=== PATIENT | female | born 1995 | race Two or more races ===

== ENCOUNTER 2017-05-20 03:35 | Inpatient (IN) | payer SELFPAY ==
[~2017-05-20] VITALS: Ht 157.5 cm; Wt 65.8 kg
[2017-05-20] VITALS (15 sets, daily range): BP systolic 92–119; BP diastolic 40–84
[2017-05-20 04:17] LABS: BASO # 0.1 x10^3/uL (0.0-0.2); BASO % 1 % (0-3); EOS % 0 % (0-3); HEMATOCRIT 52.2 % (36.0-47.0); HEMOGLOBIN 16.3 g/dL (12.0-15.5); LYMPH # 4.2 x10^3/uL (1.0-4.8); LYMPH % 30 % (24-48); MEAN CORPUSCULAR HEMOGLOBIN 28 pg (25-35); MEAN CORPUSCULAR HGB CONC 31 g/dL (31-37); MEAN CORPUSCULAR VOLUME 91 fL (79-100); MONO % 6 % (0-9); NEUT % 63 % (31-73); PLATELET COUNT 386 x10^3/uL (140-400); RED BLOOD COUNT 5.76 x10^6/uL (3.50-5.40); RED CELL DISTRIBUTION WIDTH 16.1 % (11.5-14.5)
[2017-05-20 04:30] LABS: BILIRUBIN,URINE NEGATIVE (NEG); GLUCOSE,URINE >=1000 mg/dL (NEG); NITRITE,URINE NEGATIVE (NEG); PH,URINE 5.5; PROTEIN,URINE 100 mg/dL (NEG-TRACE); UROBILINOGEN,URINE 0.2 mg/dL (0.2 mg/dL)
[2017-05-20] MEDS ORDERED: IV NORMAL SALINE 1000ML BAG 1,000 ML IV ONE ×3 (04:30→06:30)
[2017-05-20] MEDS ORDERED: HYDROmorphone 2 MG/ML VIAL IV ONE ×2 (04:30→05:15)
[2017-05-20] MEDS ORDERED: ONDANSETRON PF 4 MG/2 ML VIAL. IV ONE (04:30)
[2017-05-20] MEDS ORDERED: KETOROLAC 15 MG/ML VIAL. IV ONE (04:30)
[2017-05-20 04:32] LABS: ALBUMIN 4.5 g/dL (3.4-5.0); ALBUMIN/GLOBULIN RATIO 0.9 (1.0-1.7); CREATININE 1.3 mg/dL (0.6-1.0); GFR 52.2; POTASSIUM 4.6 mmol/L (3.5-5.1); TOTAL BILIRUBIN 0.4 mg/dL (0.2-1.0); TOTAL PROTEIN 9.7 g/dL (6.4-8.2)
--- NOTE | 2017-05-20 04:39 | RAD ---
Abdominal and Pelvis CT, Without Contrast: History: Left flank pain. Comparison: None. Procedure: Axial images are obtained of the abdomen and pelvis, without IV or oral contrast. CT Abdomen without Contrast: Findings: Evaluation of solid organs is limited without contrast. Evaluation of stomach and bowel is limited without oral contrast. Liver: Normal. Spleen: Normal. Pancreas: Normal. Adrenal Glands: Normal. Kidneys: Normal. There is no free air or free fluid. There is no lymphadenopathy. There is mild motion artifact. Impression: Please see CT Pelvis without Contrast. End Impression. CT Pelvis without Contrast: Findings: The urinary bladder appears normal. There is no free fluid. There is no lymphadenopathy. There is no pericolonic inflammation identified. The appendix is not well seen. Impression: No acute findings. End impression PQRS Compliance Statement: One or more of the following individualized dose reduction techniques were utilized for this examination: 1. Automated exposure control 2. Adjustment of the mA and/or kV according to patient size 3. Use of iterative reconstruction technique Electronically signed by: Ovi Fleming III, MD (05/20/2017 4:35 AM) [facility]
[2017-05-20] MEDS ORDERED: POTASSIUM CHLORIDE 10MEQ 100 ML IV PRN ×3 (04:45)
[2017-05-20] MEDS ORDERED: INSULIN REGULAR VIAL 150 UNIT in 0.9 % SODIUM CHLORIDE 150ML 150 ML IV PRN ×2 (04:45→04:51)
[2017-05-20 05:09] LABS: BACTERIA,URINE MODERATE /HPF (0-FEW); RBC,URINE OCC /HPF (0-2); SQUAMOUS EPITHELIAL CELL,UR MANY /LPF
--- NOTE | 2017-05-20 05:12 | PHYS DOC ---
Past Medical History Past Medical History: Diabetes-Type I Past Surgical History: No Surgical History Alcohol Use: None Drug Use: None Adult General Chief Complaint Chief Complaint: FLANK PAIN HPI HPI Patient is a 22 year old female with history significant for diabetes and DKA in the past as well as kidney infections presents here today complaining of left flank pain that was severe that started earlier this morning approximately 24 hours ago. Patient presents here today complaining of nausea vomiting, no diarrhea, no fevers shakes chills. Complaining of abdominal discomfort and cramping. Patient has any history of hypertension liver problems or other kidney problems. Patient does not smoke drink or do any drugs. Patient reports she is allergic to any medications. Patient has had no prior surgeries. Patient has any other symptomatology. Patient has any cough cold runny nose. Patient reports that she no longer has her doctor secondary to insurance reasons however she does go the clinic and she reports she has been compliant with all of her insulin except for her nighttime long-acting dose. Review of systems: Constitutional: Denies fever or chills Eyes: Denies change in visual acuity, redness, or eye pain HENT: Denies nasal congestion or sore throat All other systems were reviewed and found to be within normal limits, except as documented in this note. Physical exam Constitutional: Well developed, well nourished, significant discomfort, tachypneic and appears to be moderate respiratory discomfort. HENT: Normocephalic, atraumatic, bilateral external ears normal, oropharynx moist, no oral exudates, nose normal. Eyes: PERRLA, EOMI, conjunctiva normal, no discharge. Neck: Normal range of motion, no tenderness, supple, no stridor. Cardiovascular:Heart rate regular rhythm, tachycardic Lungs & Thorax: Bilateral breath sounds clear to auscultation Abdomen: Nondistended. Soft no rebound or guarding. Patient left tenderness palpation diffusely. Patient has tenderness to palpation to her left flank. Skin: Warm, dry, no erythema, no rash. Back: Significant tenderness to palpation to her left flank. Extremities: No tenderness, no cyanosis, no clubbing, ROM intact, no edema. Neurologic: Alert and oriented X 3, normal motor function, normal sensory function, no focal deficits noted. Psychologic: Affect normal, judgement normal, mood normal. CT scan of the abdomen pelvis: No acute pathology. EKG reveals sinus tachycardia at a heart rate of [address]-T wave abnormalities. No ischemia noted. Patient's labs were significant for severe diabetic ketoacidosis. Patient with a bicarbonate of 5 with a significant anion gap. Patient's blood sugars under 500. test negative. Assessment and plan: 1. 22-year-old female who presents here today with left flank pain and severe discomfort however she appears to be in severe diabetic ketoacidosis with a marked acidosis and anion gap. While the ER the patient was started on aggressive hydration and insulin supplementation. Patient will be admitted to the ICU for further management. Patient was volume resuscitated with 3 L of normal saline the ER. Patient was given 0.1 units per kilo per hour of insulin drip. Patient was given Dilaudid 1 mg IV as well as Toradol to assist with her pain initially as we initially thought this pain was secondary to renal colic. Patient feels much improved after pain medicines and IV fluids. Patient is currently significantly improved clinically and is stable for transfer up to the ICU at this time. Critical care time of 45 minutes were utilizing a treatment and management of this patient's severe acidosis and diabetic ketoacidosis. Patient was volume resuscitated with saline as well as IV insulin to correct her severe acidosis. Current Medications Current Medications Current Medications Medications (Trade) Dose Ordered Sig/Aaron Start Time Stop Time Status Last Admin Dose Admin Hydromorphone HCl (Dilaudid) 0.5 mg 1X ONCE 05/20/17 05:15 05/20/17 05:16 05/20/17 04:58 0.5 MG Insulin Human Regular 150 unit/ Sodium Chloride 151.5 ml @ 0 mls/hr CONT PRN PRN 05/20/17 04:51 Ketorolac Tromethamine (Toradol) 15 mg 1X ONCE 05/20/17 04:30 05/20/17 04:31 DC 05/20/17 04:12 15 MG Ondansetron HCl (Zofran) 4 mg 1X ONCE 05/20/17 04:30 05/20/17 04:31 DC 05/20/17 04:12 4 MG Potassium Chloride 100 ml @ 100 mls/hr PRN Q1HR PRN 05/20/17 04:45 Sodium Chloride 1,000 ml @ 1,000 mls/hr 1X ONCE 05/20/17 04:45 05/20/17 05:44 05/20/17 04:58 1,000 MLS/HR Allergies Allergies Allergies Coded Allergies Type Severity Reaction Last Updated Verified No Known Drug Allergies 06/19/13 No Current Patient Data Vital Signs Vital Signs Date Time Temp Pulse Resp B/P (MAP) Pulse Ox O2 Delivery O2 Flow Rate FiO2 05/20/17 03:45 97.8 106 30 151/91 (111) 98 Room Air 97.8 Lab Values Laboratory Tests Test 05/20/17 03:45 05/20/17 03:48 White Blood Count 14.0 x10^3/uL (4.0-11.0) H Red Blood Count 5.76 x10^6/uL (3.50-5.40) H Hemoglobin 16.3 g/dL (12.0-15.5) H Hematocrit 52.2 % (36.0-47.0) H Mean Corpuscular Volume 91 fL (79-100) Mean Corpuscular Hemoglobin 28 pg (25-35) Mean Corpuscular Hemoglobin Concent 31 g/dL (31-37) Red Cell Distribution Width 16.1 % (11.5-14.5) H Platelet Count 386 x10^3/uL (140-400) Neutrophils (%) (Auto) 63 % (31-73) Lymphocytes (%) (Auto) 30 % (24-48) Monocytes (%) (Auto) 6 % (0-9) Eosinophils (%) (Auto) 0 % (0-3) Basophils (%) (Auto) 1 % (0-3) Neutrophils # (Auto) 8.8 x10^3uL (1.8-7.7) H Lymphocytes # (Auto) 4.2 x10^3/uL (1.0-4.8) Monocytes # (Auto) 0.9 x10^3/uL (0.0-1.1) Eosinophils # (Auto) 0.0 x10^3/uL (0.0-0.7) Basophils # (Auto) 0.1 x10^3/uL (0.0-0.2) Sodium Level 139 mmol/L (136-145) Potassium Level 4.6 mmol/L (3.5-5.1) Chloride Level 98 mmol/L (98-107) Carbon Dioxide Level 7 mmol/L (21-32) *L Anion Gap 34 (6-14) H Blood Urea Nitrogen 15 mg/dL (7-20) Creatinine 1.3 mg/dL (0.6-1.0) H Estimated GFR (Cockcroft-Gault) 52.2 BUN/Creatinine Ratio 12 (6-20) Glucose Level 427 mg/dL (70-99) H Calcium Level 9.0 mg/dL (8.5-10.1) Total Bilirubin 0.4 mg/dL (0.2-1.0) Aspartate Amino Transferase (AST) 21 U/L (15-37) Alanine Aminotransferase (ALT) 37 U/L (14-59) Alkaline Phosphatase 155 U/L (46-116) H Total Protein 9.7 g/dL (6.4-8.2) H Albumin 4.5 g/dL (3.4-5.0) Albumin/Globulin Ratio 0.9 (1.0-1.7) L Lipase 110 U/L (73-393) POC Urine HCG, Qualitative Hcg negative (Negative) Laboratory Tests 05/20/17 03:45 Laboratory Tests 05/20/17 03:45 EKG EKG [] Radiology/Procedures Radiology/Procedures [] Course & Med Decision Making Course & Med Decision Making Pertinent Labs and Imaging studies reviewed. (See chart for details) [] Dragon Disclaimer Dragon Disclaimer This electronic medical record was generated, in whole or in part, using a voice recognition dictation system. Departure Departure Impression: Primary Impression: Diabetic ketoacidosis Disposition: HOME, SELF-CARE Admitting Physician: Alayna Nunez Condition: IMPROVED Referrals: NO PCP (PCP) GERALDO BEACH MD May 20, 2017 05:12
--- NOTE | 2017-05-20 05:20 | EKG ---
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
[2017-05-20] MEDS: IV DEXTROSE 5% - 0.9 % NACL 1,000 ML IV SCH ×3 (07:45→15:45)
[2017-05-20] MEDS: HYDROmorphone 2 MG/ML VIAL IV PRN ×4 (07:52→23:20)
[2017-05-20 08:40] LABS: CALCIUM 7.1 mg/dL (8.5-10.1); GFR 70.7; MAGNESIUM 1.4 mg/dL (1.8-2.4); POTASSIUM 4.6 mmol/L (3.5-5.1)
[2017-05-20] MEDS ORDERED: MAGNESIUM SULFATE 4GM 100 ML IV ONE (09:00)
--- NOTE | 2017-05-20 09:19 | PDOC1 ---
History and Physical Date of Admission Date of Admission DATE: 05/20/17 TIME: 09:09 Identification/Chief Complaint Chief Complaint flank pain Problems: Source Source: Chart review, Patient History of Present Illness History of Present Illness Ms. Qureshi, is a 22 year old female admit with gap acidosis, consistent with DKA. She went to the ER, complaining of acute flank pain, she has been getting IV pain meds in the ER and ICU, now lethargic Pain was described as abdominal discomfort and cramping. Patient does not smoke drink or do any drugs, denies ingesting anything unusual. Patient has any cough cold runny nose, has not gotten a flu shot Past Medical History Cardiovascular: No pertinent hx Pulmonary: No pertinent hx Renal/: No pertinent hx Endocrine: No pertinent hx Dermatology: No pertinent hx Family History Family History: Family History Unknown Social History Smoke: No ALCOHOL: none Current Problem List Problem List Problems Medical Problems: (1) Diabetic ketoacidosis Status: Acute Problems: Current Medications Current Medications Current Medications Ondansetron HCl (Zofran) 4 mg 1X ONCE IV Last administered on 05/20/17 04:12 ; Start 05/20/17 at 04:30; Stop 05/20/17 at 04:31; Status DC Hydromorphone HCl (Dilaudid) 1 mg 1X ONCE IV Last administered on 05/20/17 04:12; Start 05/20/17 at 04:30; Stop 05/20/17 at 04:31; Status DC Ketorolac Tromethamine (Toradol) 15 mg 1X ONCE IV Last administered on 04:12; Start 05/20/17 at 04:30; Stop 05/20/17 at 04:31; Status DC Sodium Chloride 1,000 ml @ 1,000 mls/hr 1X ONCE IV Last administered on 05/20 04:13; Start 05/20/17 at 04:30; Stop 05/20/17 at 05:29; Status DC Sodium Chloride 1,000 ml @ 1,000 mls/hr 1X ONCE IV Last administered on 05/20 04:58; Start 05/20/17 at 04:45; Stop 05/20/17 at 05:44; Status DC Insulin Human Regular 150 unit/ Sodium Chloride 151.5 ml @ 0 mls/hr CONT PRN PRN IV PER PROTOCOL; Start 05/20/17 at 04:45; Stop 05/20/17 at 04:51; Status DC Potassium Chloride 100 ml @ 100 mls/hr PRN Q1HR PRN IV SEE COMMENTS; Start at 04:45 Potassium Chloride 100 ml @ 100 mls/hr PRN Q1HR PRN IV SEE COMMENTS; Start at 04:45 Potassium Chloride 100 ml @ 100 mls/hr PRN Q1HR PRN IV SEE COMMENTS; Start at 04:45 Insulin Human Regular 150 unit/ Sodium Chloride 151.5 ml @ 0 mls/hr CONT PRN PRN IV PER PROTOCOL Last administered on 05/20/17 05:09; Start 05/20/17 at 04 :51 Hydromorphone HCl (Dilaudid) 0.5 mg 1X ONCE IV Last administered on 04:58; Start 05/20/17 at 05:15; Stop 05/20/17 at 05:16; Status DC Hydromorphone HCl (Dilaudid) 0.5 mg PRN Q2HR PRN IV SEVERE PAIN Last administered on 05/20/17 07:52; Start 05/20/17 at 05:45 Sodium Chloride 1,000 ml @ 1,000 mls/hr 1X ONCE IV Last administered on 05/20 06:18; Start 05/20/17 at 06:30; Stop 05/20/17 at 07:29; Status DC Dextrose/Sodium Chloride 1,000 ml @ 250 mls/hr Q4H IV Last administered on 07:45; Start 05/20/17 at 07:45 Magnesium Sulfate/ Dextrose 100 ml @ 25 mls/hr 1X ONCE IV ; Start 05/20/17 at 09:00; Stop 05/20/17 at 12:59 Active Scripts Active Allergies Allergies: Coded Allergies: No Known Drug Allergies (Unverified , 06/19/13) ROS General: No: Chills, Night Sweats, Fatigue, Malaise, Appetite, Other PSYCHOLOGICAL ROS: No: Anxiety, Behavioral Disorder, Concentration difficultie , Decreased libido, Depression, Disorientation, Hallucinations, Hostility, Irritablity, Memory difficulties, Mood Swings, Obsessive thoughts, Physical abuse, Sexual abuse, Sleep disturbances, Suicidal ideation, Other Eyes: No Blurry vision, No Decreased vision, No Double vision, No Dry eyes, No Excessive tearing, No Eye Pain, No Itchy Eyes, No Loss of vision, No Photophobia , No Scotomata, No Uses contacts, No Uses glasses, No Other HEENT: YES: Heacaches, No: Visual Changes, Hearing change, Nasal congestion, Nasal discharge, Oral lesions, Sinus pain, Sore Throat, Epistaxis, Sneezing, Snoring, Tinnitus, Vertigo, Vocal changes, Other Respiratory: No: Cough, Hemoptysis, Orthopnea, Pleuritic Pain, Shortness of breath, SOB with excertion, Sputum Changes, Stridor, Tachypnea, Wheezing, Other Cardiovascular: No Chest Pain, No Palpitations, No Orthopnea, No Paroxysmal Noc. Dyspnea, No Edema, No Lt Headedness, No Other Gastrointestinal: No Nausea, No Vomiting, No Abdominal Pain, No Diarrhea, No Constipation, No Melena, No Hematochezia, No Other Genitourinary: No Dysuria, No Frequency, No Incontinence, No Hematuria, No Retention, No Discharge, No Urgency, No Pain, No Flank Pain, No Other, No , No , No , No , No , No , No Musculoskeletal: No Gait Disturbance, No Joint Pain, No Joint Stiffness, No Joint Swelling, No Muscle Pain, No Muscular Weakness, No Pain In:, No Swelling In:, No Other Neurological: No Behavorial Changes, No Bowel/Bladder ControlChng, No Confusion , No Dizziness, No Gait Disturbance, No Headaches, No Impaired Coord/balance, No Memory Loss, No Numbness/Tingling, No Seizures, No Speech Problems, No Tremors, No Visual Changes, No Weakness, No Other Skin: Yes Dry Skin, No Eczema, No Hair Changes, No Lumps, No Mole Changes, No Mottling, No Nail Changes, No Pruritus, No Rash, No Skin Lesion Changes, No Other, No Acne Physical Exam General: Alert, Oriented X3, Cooperative, No acute distress HEENT: Atraumatic, PERRLA Lungs: Clear to auscultation Heart: S1S2 Abdomen: Normal bowel sounds, Soft Extremities: No clubbing, No cyanosis, No edema, Normal pulses Skin: No breakdown, No significant lesion Neuro: Normal speech, Normal tone, Cranial nerves 3-12 NL Psych/Mental Status: Other (lethargy) Vitals Vitals Vital Signs Date Time Temp Pulse Resp B/P (MAP) Pulse Ox O2 Delivery O2 Flow Rate FiO2 05/20/17 07:52 11 100 05/20/17 06:30 132 119/65 (83) Room Air 05/20/17 06:00 98.3 98.3 Labs Labs Laboratory Tests Test 05/20/17 03:45 05/20/17 03:48 05/20/17 06:12 05/20/17 07:24 White Blood Count 14.0 x10^3/uL (4.0-11.0) Red Blood Count 5.76 x10^6/uL (3.50-5.40) Hemoglobin 16.3 g/dL (12.0-15.5) Hematocrit 52.2 % (36.0-47.0) Mean Corpuscular Volume 91 fL (79-100) Mean Corpuscular Hemoglobin 28 pg (25-35) Mean Corpuscular Hemoglobin Concent 31 g/dL (31-37) Red Cell Distribution Width 16.1 % (11.5-14.5) Platelet Count 386 x10^3/uL (140-400) Neutrophils (%) (Auto) 63 % (31-73) Lymphocytes (%) (Auto) 30 % (24-48) Monocytes (%) (Auto) 6 % (0-9) Eosinophils (%) (Auto) 0 % (0-3) Basophils (%) (Auto) 1 % (0-3) Neutrophils # (Auto) 8.8 x10^3uL (1.8-7.7) Lymphocytes # (Auto) 4.2 x10^3/uL (1.0-4.8) Monocytes # (Auto) 0.9 x10^3/uL (0.0-1.1) Eosinophils # (Auto) 0.0 x10^3/uL (0.0-0.7) Basophils # (Auto) 0.1 x10^3/uL (0.0-0.2) Urine Collection Type Unknown Urine Color Yellow Urine Clarity Clear Urine pH 5.5 Urine Specific [place] >=1.030 Urine Protein 100 mg/dL (NEG-TRACE) Urine Glucose (UA) >=1000 mg/dL (NEG) Urine Ketones (Stick) >=80 mg/dL (NEG) Urine Blood Small (NEG) Urine Nitrite Negative (NEG) Urine Bilirubin Negative (NEG) Urine Urobilinogen Dipstick 0.2 mg/dL (0.2 mg/dL) Urine Leukocyte Esterase Negative (NEG) Urine RBC Occ /HPF (0-2) Urine WBC 1-4 /HPF (0-4) Urine Squamous Epithelial Cells Many /LPF Urine Bacteria Moderate /HPF (0-FEW) Sodium Level 139 mmol/L (136-145) Potassium Level 4.6 mmol/L (3.5-5.1) Chloride Level 98 mmol/L (98-107) Carbon Dioxide Level 7 mmol/L (21-32) Anion Gap 34 (6-14) Blood Urea Nitrogen 15 mg/dL (7-20) Creatinine 1.3 mg/dL (0.6-1.0) Estimated GFR (Cockcroft-Gault) 52.2 BUN/Creatinine Ratio 12 (6-20) Glucose Level 427 mg/dL (70-99) Calcium Level 9.0 mg/dL (8.5-10.1) Phosphorus Level 4.3 mg/dL (2.6-4.7) Magnesium Level 1.7 mg/dL (1.8-2.4) Total Bilirubin 0.4 mg/dL (0.2-1.0) Aspartate Amino Transf (AST/SGOT) 21 U/L (15-37) Alanine Aminotransferase (ALT/SGPT) 37 U/L (14-59) Alkaline Phosphatase 155 U/L (46-116) Total Protein 9.7 g/dL (6.4-8.2) Albumin 4.5 g/dL (3.4-5.0) Albumin/Globulin Ratio 0.9 (1.0-1.7) Lipase 110 U/L (73-393) Bedside Urine HCG, Qualitative Hcg negative (Negative) Glucose (Fingerstick) 323 mg/dL (70-99) 211 mg/dL (70-99) Test 05/20/17 08:05 05/20/17 08:36 Sodium Level 139 mmol/L (136-145) Potassium Level 4.6 mmol/L (3.5-5.1) Chloride Level 108 mmol/L (98-107) Carbon Dioxide Level 5 mmol/L (21-32) Anion Gap 26 (6-14) Blood Urea Nitrogen 12 mg/dL (7-20) Creatinine 1.0 mg/dL (0.6-1.0) Estimated GFR (Cockcroft-Gault) 70.7 Glucose Level 236 mg/dL (70-99) Calcium Level 7.1 mg/dL (8.5-10.1) Phosphorus Level 2.8 mg/dL (2.6-4.7) Magnesium Level 1.4 mg/dL (1.8-2.4) Glucose (Fingerstick) 205 mg/dL (70-99) Laboratory Tests Test 05/20/17 03:45 05/20/17 03:48 05/20/17 06:12 05/20/17 07:24 White Blood Count 14.0 x10^3/uL (4.0-11.0) Red Blood Count 5.76 x10^6/uL (3.50-5.40) Hemoglobin 16.3 g/dL (12.0-15.5) Hematocrit 52.2 % (36.0-47.0) Mean Corpuscular Volume 91 fL (79-100) Mean Corpuscular Hemoglobin 28 pg (25-35) Mean Corpuscular Hemoglobin Concent 31 g/dL (31-37) Red Cell Distribution Width 16.1 % (11.5-14.5) Platelet Count 386 x10^3/uL (140-400) Neutrophils (%) (Auto) 63 % (31-73) Lymphocytes (%) (Auto) 30 % (24-48) Monocytes (%) (Auto) 6 % (0-9) Eosinophils (%) (Auto) 0 % (0-3) Basophils (%) (Auto) 1 % (0-3) Neutrophils # (Auto) 8.8 x10^3uL (1.8-7.7) Lymphocytes # (Auto) 4.2 x10^3/uL (1.0-4.8) Monocytes # (Auto) 0.9 x10^3/uL (0.0-1.1) Eosinophils # (Auto) 0.0 x10^3/uL (0.0-0.7) Basophils # (Auto) 0.1 x10^3/uL (0.0-0.2) Urine Collection Type Unknown Urine Color Yellow Urine Clarity Clear Urine pH 5.5 Urine Specific [place] >=1.030 Urine Protein 100 mg/dL (NEG-TRACE) Urine Glucose (UA) >=1000 mg/dL (NEG) Urine Ketones (Stick) >=80 mg/dL (NEG) Urine Blood Small (NEG) Urine Nitrite Negative (NEG) Urine Bilirubin Negative (NEG) Urine Urobilinogen Dipstick 0.2 mg/dL (0.2 mg/dL) Urine Leukocyte Esterase Negative (NEG) Urine RBC Occ /HPF (0-2) Urine WBC 1-4 /HPF (0-4) Urine Squamous Epithelial Cells Many /LPF Urine Bacteria Moderate /HPF (0-FEW) Sodium Level 139 mmol/L (136-145) Potassium Level 4.6 mmol/L (3.5-5.1) Chloride Level 98 mmol/L (98-107) Carbon Dioxide Level 7 mmol/L (21-32) Anion Gap 34 (6-14) Blood Urea Nitrogen 15 mg/dL (7-20) Creatinine 1.3 mg/dL (0.6-1.0) Estimated GFR (Cockcroft-Gault) 52.2 BUN/Creatinine Ratio 12 (6-20) Glucose Level 427 mg/dL (70-99) Calcium Level 9.0 mg/dL (8.5-10.1) Phosphorus Level 4.3 mg/dL (2.6-4.7) Magnesium Level 1.7 mg/dL (1.8-2.4) Total Bilirubin 0.4 mg/dL (0.2-1.0) Aspartate Amino Transf (AST/SGOT) 21 U/L (15-37) Alanine Aminotransferase (ALT/SGPT) 37 U/L (14-59) Alkaline Phosphatase 155 U/L (46-116) Total Protein 9.7 g/dL (6.4-8.2) Albumin 4.5 g/dL (3.4-5.0) Albumin/Globulin Ratio 0.9 (1.0-1.7) Lipase 110 U/L (73-393) Bedside Urine HCG, Qualitative Hcg negative (Negative) Glucose (Fingerstick) 323 mg/dL (70-99) 211 mg/dL (70-99) Test 05/20/17 08:05 05/20/17 08:36 Sodium Level 139 mmol/L (136-145) Potassium Level 4.6 mmol/L (3.5-5.1) Chloride Level 108 mmol/L (98-107) Carbon Dioxide Level 5 mmol/L (21-32) Anion Gap 26 (6-14) Blood Urea Nitrogen 12 mg/dL (7-20) Creatinine 1.0 mg/dL (0.6-1.0) Estimated GFR (Cockcroft-Gault) 70.7 Glucose Level 236 mg/dL (70-99) Calcium Level 7.1 mg/dL (8.5-10.1) Phosphorus Level 2.8 mg/dL (2.6-4.7) Magnesium Level 1.4 mg/dL (1.8-2.4) Glucose (Fingerstick) 205 mg/dL (70-99) VTE Prophylaxis Ordered VTE Prophylaxis Devices: No VTE Pharmacological Prophylaxi: Yes Assessment/Plan Assessment/Plan sepsis, unk source, check flu swab, CXR, ID consult acute metabolic encephalopathy gap metabolic acidosis, check lactic, asa, EtOH, she denies any ingestion respiratory acidosis, lethargy, weakness SIMONA CAMPA MD May 20, 2017 09:19
[2017-05-20] MEDS ORDERED: SODIUM BICARB ADULT 8.4% 50 MEQ/50 ML DISP.SYRIN. IV ONE (09:45)
--- NOTE | 2017-05-20 09:55 | RAD ---
AP PORTABLE CHEST Clinical Indication: sepsis. Comparison: AP chest, 12/24/2012. Findings: The cardiomediastinal silhouette is normal. Lungs are clear. There is no pneumothorax. No pleural effusion is appreciated. There is no acute bone abnormality. IMPRESSION: No acute cardiopulmonary process.
[2017-05-20 09:57] LABS: BARBITURATES NEG (NEG); BENZODIAZEPINES NEG (NEG); CANNABINOIDS NEG (NEG); COCAINE NEG (NEG); METHADONE NEG (NEG); OPIATES NEG (NEG); PHENCYCLIDINE NEG (NEG)
[2017-05-20 10:15] LABS: HCO3 ABG 4 mmol/L (21-28); PO2 ABG 125 mmHg (85-108); SAT O2 ABG 98 % (92-99)
[2017-05-20 10:16] LABS: FIO2 ABG 21; PCO2 ABG < 15 mmHg (35-46); PH ABG 7.05 (7.35-7.45)
[2017-05-20] MEDS: ENOXAPARIN 40 MG/0.4 ML SYRINGE. SQ SCH (10:34)
--- NOTE | 2017-05-20 10:45 | PDOC ---
PROGRESS NOTES Subjective Subjective consulted for Met ACidosis: Lactic pending, SUspect due to DKA AB.045/ 13.6/ 125/ 3.6 IV Bcarb as ordered by Dr Mason and Dr Nunez Gap is closing with correction of DKA. Pl call prn Objective Objective Vital Signs Date Time Temp Pulse Resp B/P (MAP) Pulse Ox O2 Delivery O2 Flow Rate FiO2 05/20/17 10:07 99 BiPAP/CPAP 05/20/17 08:25 10 05/20/17 06:30 132 119/65 (83) 05/20/17 06:00 98.3 98.3 Assessment Assessment Problems Medical Problems: (1) Diabetic ketoacidosis Status: Acute Comment Review of Relevant I have reviewed the following items tyra (where applicable) has been applied. Labs Laboratory Tests Test 05/20/17 03:45 05/20/17 03:48 05/20/17 06:12 05/20/17 06:46 White Blood Count 14.0 x10^3/uL (4.0-11.0) Red Blood Count 5.76 x10^6/uL (3.50-5.40) Hemoglobin 16.3 g/dL (12.0-15.5) Hematocrit 52.2 % (36.0-47.0) Mean Corpuscular Volume 91 fL (79-100) Mean Corpuscular Hemoglobin 28 pg (25-35) Mean Corpuscular Hemoglobin Concent 31 g/dL (31-37) Red Cell Distribution Width 16.1 % (11.5-14.5) Platelet Count 386 x10^3/uL (140-400) Neutrophils (%) (Auto) 63 % (31-73) Lymphocytes (%) (Auto) 30 % (24-48) Monocytes (%) (Auto) 6 % (0-9) Eosinophils (%) (Auto) 0 % (0-3) Basophils (%) (Auto) 1 % (0-3) Neutrophils # (Auto) 8.8 x10^3uL (1.8-7.7) Lymphocytes # (Auto) 4.2 x10^3/uL (1.0-4.8) Monocytes # (Auto) 0.9 x10^3/uL (0.0-1.1) Eosinophils # (Auto) 0.0 x10^3/uL (0.0-0.7) Basophils # (Auto) 0.1 x10^3/uL (0.0-0.2) Urine Collection Type Unknown Urine Color Yellow Urine Clarity Clear Urine pH 5.5 Urine Specific [place] >=1.030 Urine Protein 100 mg/dL (NEG-TRACE) Urine Glucose (UA) >=1000 mg/dL (NEG) Urine Ketones (Stick) >=80 mg/dL (NEG) Urine Blood Small (NEG) Urine Nitrite Negative (NEG) Urine Bilirubin Negative (NEG) Urine Urobilinogen Dipstick 0.2 mg/dL (0.2 mg/dL) Urine Leukocyte Esterase Negative (NEG) Urine RBC Occ /HPF (0-2) Urine WBC 1-4 /HPF (0-4) Urine Squamous Epithelial Cells Many /LPF Urine Bacteria Moderate /HPF (0-FEW) Sodium Level 139 mmol/L (136-145) Potassium Level 4.6 mmol/L (3.5-5.1) Chloride Level 98 mmol/L (98-107) Carbon Dioxide Level 7 mmol/L (21-32) Anion Gap 34 (6-14) Blood Urea Nitrogen 15 mg/dL (7-20) Creatinine 1.3 mg/dL (0.6-1.0) Estimated GFR (Cockcroft-Gault) 52.2 BUN/Creatinine Ratio 12 (6-20) Glucose Level 427 mg/dL (70-99) Calcium Level 9.0 mg/dL (8.5-10.1) Phosphorus Level 4.3 mg/dL (2.6-4.7) Magnesium Level 1.7 mg/dL (1.8-2.4) Total Bilirubin 0.4 mg/dL (0.2-1.0) Aspartate Amino Transf (AST/SGOT) 21 U/L (15-37) Alanine Aminotransferase (ALT/SGPT) 37 U/L (14-59) Alkaline Phosphatase 155 U/L (46-116) Total Protein 9.7 g/dL (6.4-8.2) Albumin 4.5 g/dL (3.4-5.0) Albumin/Globulin Ratio 0.9 (1.0-1.7) Lipase 110 U/L (73-393) Urine Opiates Screen Neg (NEG) Urine Methadone Screen Neg (NEG) Urine Barbiturates Neg (NEG) Urine Phencyclidine Screen Neg (NEG) Urine Amphetamine/Methamphetamine Neg (NEG) Urine Benzodiazepines Screen Neg (NEG) Urine Cocaine Screen Neg (NEG) Urine Cannabinoids Screen Neg (NEG) Urine Ethyl Alcohol Neg (NEG) Bedside Urine HCG, Qualitative Hcg negative (Negative) Glucose (Fingerstick) 323 mg/dL (70-99) O2 Saturation 98 % (92-99) Arterial Blood pH 7.05 (7.35-7.45) Arterial Blood pCO2 at Patient Temp < 15 mmHg (35-46) Arterial Blood pO2 at Patient Temp 125 mmHg (85-108) Arterial Blood HCO3 4 mmol/L (21-28) Arterial Blood Base Excess -25 mmol/L (-3-3) FiO2 21 Test 05/20/17 07:24 05/20/17 08:05 05/20/17 08:36 05/20/17 09:30 Glucose (Fingerstick) 211 mg/dL (70-99) 205 mg/dL (70-99) Sodium Level 139 mmol/L (136-145) Potassium Level 4.6 mmol/L (3.5-5.1) Chloride Level 108 mmol/L (98-107) Carbon Dioxide Level 5 mmol/L (21-32) Anion Gap 26 (6-14) Blood Urea Nitrogen 12 mg/dL (7-20) Creatinine 1.0 mg/dL (0.6-1.0) Estimated GFR (Cockcroft-Gault) 70.7 Glucose Level 236 mg/dL (70-99) Calcium Level 7.1 mg/dL (8.5-10.1) Phosphorus Level 2.8 mg/dL (2.6-4.7) Magnesium Level 1.4 mg/dL (1.8-2.4) Salicylates Level 7.1 mg/dL (2.8-20.0) Salicylate Last Dose Date 05/19/17 Salicylate Last Dose Time 1900 Ethyl Alcohol Level < 10 mg/dL (0-10) Lactic Acid Level 0.7 mmol/L (0.4-2.0) Test 05/20/17 09:51 Glucose (Fingerstick) 207 mg/dL (70-99) Laboratory Tests Test 05/20/17 03:45 05/20/17 03:48 05/20/17 06:12 05/20/17 06:46 White Blood Count 14.0 x10^3/uL (4.0-11.0) Red Blood Count 5.76 x10^6/uL (3.50-5.40) Hemoglobin 16.3 g/dL (12.0-15.5) Hematocrit 52.2 % (36.0-47.0) Mean Corpuscular Volume 91 fL (79-100) Mean Corpuscular Hemoglobin 28 pg (25-35) Mean Corpuscular Hemoglobin Concent 31 g/dL (31-37) Red Cell Distribution Width 16.1 % (11.5-14.5) Platelet Count 386 x10^3/uL (140-400) Neutrophils (%) (Auto) 63 % (31-73) Lymphocytes (%) (Auto) 30 % (24-48) Monocytes (%) (Auto) 6 % (0-9) Eosinophils (%) (Auto) 0 % (0-3) Basophils (%) (Auto) 1 % (0-3) Neutrophils # (Auto) 8.8 x10^3uL (1.8-7.7) Lymphocytes # (Auto) 4.2 x10^3/uL (1.0-4.8) Monocytes # (Auto) 0.9 x10^3/uL (0.0-1.1) Eosinophils # (Auto) 0.0 x10^3/uL (0.0-0.7) Basophils # (Auto) 0.1 x10^3/uL (0.0-0.2) Urine Collection Type Unknown Urine Color Yellow Urine Clarity Clear Urine pH 5.5 Urine Specific [place] >=1.030 Urine Protein 100 mg/dL (NEG-TRACE) Urine Glucose (UA) >=1000 mg/dL (NEG) Urine Ketones (Stick) >=80 mg/dL (NEG) Urine Blood Small (NEG) Urine Nitrite Negative (NEG) Urine Bilirubin Negative (NEG) Urine Urobilinogen Dipstick 0.2 mg/dL (0.2 mg/dL) Urine Leukocyte Esterase Negative (NEG) Urine RBC Occ /HPF (0-2) Urine WBC 1-4 /HPF (0-4) Urine Squamous Epithelial Cells Many /LPF Urine Bacteria Moderate /HPF (0-FEW) Sodium Level 139 mmol/L (136-145) Potassium Level 4.6 mmol/L (3.5-5.1) Chloride Level 98 mmol/L (98-107) Carbon Dioxide Level 7 mmol/L (21-32) Anion Gap 34 (6-14) Blood Urea Nitrogen 15 mg/dL (7-20) Creatinine 1.3 mg/dL (0.6-1.0) Estimated GFR (Cockcroft-Gault) 52.2 BUN/Creatinine Ratio 12 (6-20) Glucose Level 427 mg/dL (70-99) Calcium Level 9.0 mg/dL (8.5-10.1) Phosphorus Level 4.3 mg/dL (2.6-4.7) Magnesium Level 1.7 mg/dL (1.8-2.4) Total Bilirubin 0.4 mg/dL (0.2-1.0) Aspartate Amino Transf (AST/SGOT) 21 U/L (15-37) Alanine Aminotransferase (ALT/SGPT) 37 U/L (14-59) Alkaline Phosphatase 155 U/L (46-116) Total Protein 9.7 g/dL (6.4-8.2) Albumin 4.5 g/dL (3.4-5.0) Albumin/Globulin Ratio 0.9 (1.0-1.7) Lipase 110 U/L (73-393) Urine Opiates Screen Neg (NEG) Urine Methadone Screen Neg (NEG) Urine Barbiturates Neg (NEG) Urine Phencyclidine Screen Neg (NEG) Urine Amphetamine/Methamphetamine Neg (NEG) Urine Benzodiazepines Screen Neg (NEG) Urine Cocaine Screen Neg (NEG) Urine Cannabinoids Screen Neg (NEG) Urine Ethyl Alcohol Neg (NEG) Bedside Urine HCG, Qualitative Hcg negative (Negative) Glucose (Fingerstick) 323 mg/dL (70-99) O2 Saturation 98 % (92-99) Arterial Blood pH 7.05 (7.35-7.45) Arterial Blood pCO2 at Patient Temp < 15 mmHg (35-46) Arterial Blood pO2 at Patient Temp 125 mmHg (85-108) Arterial Blood HCO3 4 mmol/L (21-28) Arterial Blood Base Excess -25 mmol/L (-3-3) FiO2 21 Test 05/20/17 07:24 05/20/17 08:05 05/20/17 08:36 05/20/17 09:30 Glucose (Fingerstick) 211 mg/dL (70-99) 205 mg/dL (70-99) Sodium Level 139 mmol/L (136-145) Potassium Level 4.6 mmol/L (3.5-5.1) Chloride Level 108 mmol/L (98-107) Carbon Dioxide Level 5 mmol/L (21-32) Anion Gap 26 (6-14) Blood Urea Nitrogen 12 mg/dL (7-20) Creatinine 1.0 mg/dL (0.6-1.0) Estimated GFR (Cockcroft-Gault) 70.7 Glucose Level 236 mg/dL (70-99) Calcium Level 7.1 mg/dL (8.5-10.1) Phosphorus Level 2.8 mg/dL (2.6-4.7) Magnesium Level 1.4 mg/dL (1.8-2.4) Salicylates Level 7.1 mg/dL (2.8-20.0) Salicylate Last Dose Date 05/19/17 Salicylate Last Dose Time 1900 Ethyl Alcohol Level < 10 mg/dL (0-10) Lactic Acid Level 0.7 mmol/L (0.4-2.0) Test 05/20/17 09:51 Glucose (Fingerstick) 207 mg/dL (70-99) Medications Current Medications Ondansetron HCl (Zofran) 4 mg 1X ONCE IV Last administered on 05/20/17 04:12 ; Start 05/20/17 at 04:30; Stop 05/20/17 at 04:31; Status DC Hydromorphone HCl (Dilaudid) 1 mg 1X ONCE IV Last administered on 05/20/17 04:12; Start 05/20/17 at 04:30; Stop 05/20/17 at 04:31; Status DC Ketorolac Tromethamine (Toradol) 15 mg 1X ONCE IV Last administered on 04:12; Start 05/20/17 at 04:30; Stop 05/20/17 at 04:31; Status DC Sodium Chloride 1,000 ml @ 1,000 mls/hr 1X ONCE IV Last administered on 05/20 04:13; Start 05/20/17 at 04:30; Stop 05/20/17 at 05:29; Status DC Sodium Chloride 1,000 ml @ 1,000 mls/hr 1X ONCE IV Last administered on 05/20 04:58; Start 05/20/17 at 04:45; Stop 05/20/17 at 05:44; Status DC Insulin Human Regular 150 unit/ Sodium Chloride 151.5 ml @ 0 mls/hr CONT PRN PRN IV PER PROTOCOL; Start 05/20/17 at 04:45; Stop 05/20/17 at 04:51; Status DC Potassium Chloride 100 ml @ 100 mls/hr PRN Q1HR PRN IV SEE COMMENTS; Start at 04:45 Potassium Chloride 100 ml @ 100 mls/hr PRN Q1HR PRN IV SEE COMMENTS; Start at 04:45 Potassium Chloride 100 ml @ 100 mls/hr PRN Q1HR PRN IV SEE COMMENTS; Start at 04:45 Insulin Human Regular 150 unit/ Sodium Chloride 151.5 ml @ 0 mls/hr CONT PRN PRN IV PER PROTOCOL Last administered on 05/20/17 05:09; Start 05/20/17 at 04 :51 Hydromorphone HCl (Dilaudid) 0.5 mg 1X ONCE IV Last administered on 04:58; Start 05/20/17 at 05:15; Stop 05/20/17 at 05:16; Status DC Hydromorphone HCl (Dilaudid) 0.5 mg PRN Q2HR PRN IV SEVERE PAIN Last administered on 05/20/17 07:52; Start 05/20/17 at 05:45 Sodium Chloride 1,000 ml @ 1,000 mls/hr 1X ONCE IV Last administered on 05/20 06:18; Start 05/20/17 at 06:30; Stop 05/20/17 at 07:29; Status DC Dextrose/Sodium Chloride 1,000 ml @ 250 mls/hr Q4H IV Last administered on 07:45; Start 05/20/17 at 07:45 Magnesium Sulfate/ Dextrose 100 ml @ 25 mls/hr 1X ONCE IV Last administered on 05/20/17 09:52; Start 05/20/17 at 09:00; Stop 05/20/17 at 12:59 Enoxaparin Sodium (Lovenox Per Pharmacy Prophylaxis Dosing) 1 each PRN DAILY PRN MC SEE COMMENTS; Start 12/24/17 at 09:15 Albuterol/ Ipratropium (Duoneb) 3 ml RTQID NEB ; Start 05/20/17 at 12:00 Enoxaparin Sodium (Lovenox 40mg Syringe) 40 mg Q24H SQ Last administered on 10:34; Start 05/20/17 at 10:00 Sodium Bicarbonate 100 meq 1X ONCE IV Last administered on 05/20/17 10:25; Start 05/20/17 at 09:45; Stop 05/20/17 at 09:46; Status DC Active Scripts Active Vitals/I & O Vital Sign - Last 24 Hours 05/20/17 05/20/17 05/20/17 05/20/17 03:45 04:35 05:06 06:00 Temp 97.8 98.3 97.8 98.3 Pulse 106 128 130 134 Resp 30 28 22 15 B/P (MAP) 151/91 (111) 119/66 (83) 119/62 (81) 112/67 (82) Pulse Ox 98 96 96 100 O2 Delivery Room Air Room Air Room Air Room Air 05/20/17 05/20/17 05/20/17 05/20/17 06:15 06:30 07:52 08:25 Pulse 134 132 Resp 15 13 11 10 B/P (MAP) 119/75 (90) 119/65 (83) Pulse Ox 100 100 100 100 O2 Delivery Room Air Room Air Room Air 05/20/17 10:07 Pulse Ox 99 O2 Delivery BiPAP/CPAP CANDY SEPULVEDA MD May 20, 2017 10:45
--- NOTE | 2017-05-20 11:45 | CONS ---
DATE OF CONSULTATION: 05/20/2017 ATTENDING PHYSICIAN: Dr. Alayna Nunez. REASON FOR CONSULTATION: Acidosis, diabetic ketoacidosis. HISTORY OF PRESENT ILLNESS: The patient is a 22-year-old female who has diabetes, insulin requiring. She came into the hospital with flank pain. The patient was also somewhat lethargic. In the Emergency Room, she was evaluated and a chest x-ray did not reveal any definite infiltrates. Her chemistries showed a blood sugar of 427 with a bicarbonate of only 7 and anion gap metabolic acidosis. Her BUN and creatinine was abnormal as well. The patient was admitted with diabetic ketoacidosis and protocol was followed. ABGs were with a pH of 7.05, pCO2 of less than 15, pO2 of 125 and a bicarbonate of 4 on 21% FiO2. At the time, I was called and with these abnormal ABGs I did place the patient on BiPAP as she was not compensating from a pulmonary standpoint. I gave 2 amps of bicarbonate. She appears to be very comfortable on the current BiPAP settings. Her lactic acid was normal. I have been asked to see her for further evaluation. PAST MEDICAL HISTORY: History of diabetes. PAST SURGICAL HISTORY: None. FAMILY HISTORY: Noncontributory to lungs. ALLERGIES: None. REVIEW OF SYSTEMS: As discussed in my history of present illness. MEDICATIONS: All reviewed as listed in the MRAD. PHYSICAL EXAMINATION: GENERAL: She is awake, following commands, on BiPAP. VITAL SIGNS: Blood pressure is stable, afebrile. HEENT: Sclerae nonicteric. NECK: Supple. LUNGS: Clear. CARDIOVASCULAR: Regular rate and rhythm. ABDOMEN: Soft. EXTREMITIES: With no pitting edema. LABORATORY DATA: Reviewed. Bicarbonate is 5. Increased anion gap. BUN and creatinine is now normal. IMPRESSION: 1. Diabetic ketoacidosis. 2. Severe metabolic acidosis secondary to diabetic ketoacidosis with somewhat inappropriate respiratory response. Currently on BiPAP. 3. No definite pneumonia seen on the chest x-ray. 4. Anion gap metabolic acidosis with normal lactic acidosis. RECOMMENDATIONS: 1. Continue present BiPAP. 2. Follow ABGs after 2 amps of bicarbonate. 3. Continue insulin protocol and follow the anion gap. 4. Management of diabetic ketoacidosis per primary care physician. 5. Renal function is improving with IV hydration. 6. Discussed with the patient's daughter and will follow along with you. d/w RN/ cct 37 min FREYA OCAMPO MD DR: VERONICA/qiana JOB#: [id number] / [id number] JON
[2017-05-20 11:47] LABS: HCO3 ABG 11 mmol/L (21-28); PCO2 ABG 24 mmHg (35-46); PH ABG 7.29 (7.35-7.45); PO2 ABG 102 mmHg (85-108); SAT O2 ABG 98 % (92-99)
[2017-05-20 12:32] LABS: CALCIUM 7.2 mg/dL (8.5-10.1); GFR 70.7; PHOSPHORUS 1.6 mg/dL (2.6-4.7); POTASSIUM 3.4 mmol/L (3.5-5.1)
[2017-05-20] MEDS: IPRATRPIUM/ALBUTEROL 0.5/2.5MG 3 ML NEBU. NEB SCH ×3 (12:32→19:22)
[2017-05-20 13:22] LABS: FIO2 ABG 21
[2017-05-20] MEDS: POTASSIUM CHLORIDE 10MEQ 100 ML IV SCH ×4 (14:59→18:07)
[2017-05-20 16:13] LABS: CALCIUM 6.9 mg/dL (8.5-10.1); GFR 70.7; POTASSIUM 3.1 mmol/L (3.5-5.1)
[2017-05-20] MEDS ORDERED: DEXTROSE 50% 25 GM / 50ML DISP.SYRIN. IV PRN (17:00)
[2017-05-20] MEDS: IV NORMAL SALINE 1000ML BAG 1,000 ML IV SCH (17:00)
[2017-05-20] MEDS: INSULIN ASPART 300 UNITS/3 ML INSULN.PEN SQ SCH ×2 (17:05→17:06)
[2017-05-20] MEDS: INSULIN DETEMIR 300 UNITS/3 ML INSULN.PEN. SQ SCH ×2 (17:06→21:00)
--- NOTE | 2017-05-20 17:59 | CONS ---
DATE OF CONSULTATION: 05/20/2017 HISTORY OF PRESENT ILLNESS: The patient is a 22-year-old female with type 1 diabetes for about 2-3 years. She does not have a doctor that she follows with. She presented to the ER with complaints of nausea, vomiting and left flank pain. We were asked to see her for acidosis. She has been diagnosed with DKA, she is noted to have greater than 80 ketones in her urine with significant glycosuria. Serum ketones are not available at this hospital and are not orderable. Lipase was 110; bicarbonate currently at 5, initially at 7 with a gap of 34; glucose is now down to 236, initial glucose was 427. PAST MEDICAL HISTORY: Type 1diabetes, otherwise negative history. FAMILY HISTORY: Positive for diabetes. SOCIAL HISTORY: No smoking, no alcohol. REVIEW OF SYSTEMS: As in HPI. PHYSICAL EXAMINATION: VITAL SIGNS: Heart rate of 132, respirations 11, pulse ox 100 on room air, blood pressure is 119/65, temperature 98.3. GENERAL: Awake, alert, oriented, on BiPAP. HEENT: NC/AT. Pupils are reactive. Sclerae and conjunctivae are normal. Mucous membranes are moist. NECK: Supple. LUNGS: Clear to auscultation. ABDOMEN: Soft. EXTREMITIES: Lower extremities have no edema. LABORATORY DATA: Potassium 4.6, bicarbonate 5, anion gap 26, BUN 12, creatinine 1.0, magnesium 1.4, phosphorus 2.8. CT of abdomen and pelvis done presumably for stone protocol without IV contrast is nonrevealing with normal looking kidneys, no acute findings. IMPRESSION, ASSESSMENT AND PLAN: Metabolic acidosis wide anion gap, anion gap is closing with correction of diabetic ketoacidosis and correction of serum glucose. No ABGs are available, hence it is unclear to me if bicarbonate will help. DKA protocol orders as ongoing. No renal abnormalities otherwise noted. Please call with questions. CANDY SEPULVEDA MD DR: IRMA/qiana JOB#: [id number] / [id number]
[2017-05-20] MEDS ORDERED: POTASSIUM PHOSPHATE DIBASIC 13.6 MMOL in IV NORMAL SALINE 250ML 250 ML IV ONE (18:00)
[2017-05-20] MEDS: ONDANSETRON PF 4 MG/2 ML VIAL. IV PRN (22:35)
[2017-05-21] MEDS: IV NORMAL SALINE 1000ML BAG 1,000 ML IV SCH ×2 (02:44→17:31)
[2017-05-21] MEDS: HYDROmorphone 2 MG/ML VIAL IV PRN ×5 (02:45→20:03)
[2017-05-21] MEDS: ONDANSETRON PF 4 MG/2 ML VIAL. IV PRN ×4 (02:46→21:44)
[2017-05-21 03:02] VITALS: BP 116/70
[2017-05-21 05:48] LABS: BASO % 0 % (0-3); EOS % 1 % (0-3); HEMOGLOBIN 12.1 g/dL (12.0-15.5); LYMPH # 1.2 x10^3/uL (1.0-4.8); LYMPH % 15 % (24-48); MEAN CORPUSCULAR HEMOGLOBIN 29 pg (25-35); MEAN CORPUSCULAR HGB CONC 34 g/dL (31-37); MEAN CORPUSCULAR VOLUME 85 fL (79-100); MONO % 7 % (0-9); NEUT % 77 % (31-73); PLATELET COUNT 229 x10^3/uL (140-400); RED BLOOD COUNT 4.23 x10^6/uL (3.50-5.40); RED CELL DISTRIBUTION WIDTH 15.2 % (11.5-14.5); WHITE BLOOD COUNT 8.1 x10^3/uL (4.0-11.0)
[2017-05-21 06:40] LABS: ALBUMIN/GLOBULIN RATIO 0.9 (1.0-1.7); CALCIUM 7.9 mg/dL (8.5-10.1); CREATININE 0.8 mg/dL (0.6-1.0); GFR 91.4; POTASSIUM 3.4 mmol/L (3.5-5.1); TOTAL BILIRUBIN 0.5 mg/dL (0.2-1.0); TOTAL PROTEIN 6.5 g/dL (6.4-8.2)
[2017-05-21 07:00] VITALS: BP 122/62
[2017-05-21] MEDS: IPRATRPIUM/ALBUTEROL 0.5/2.5MG 3 ML NEBU. NEB SCH ×4 (07:34→19:05)
[2017-05-21] MEDS: INSULIN ASPART 300 UNITS/3 ML INSULN.PEN SQ SCH ×7 (08:21→21:00)
--- NOTE | 2017-05-21 10:16 | PDOC ---
PROGRESS NOTES Chief Complaint Chief Complaint Diabetic ketoacidosis. Anion gap metabolic acidosis with normal lactic acidosis inappropriate respiratory response acute metabolic encephalopathy weakness lethargy hypokalemia History of Present Illness History of Present Illness Patient seen and examined. No acute events overnight. Patient states she is feeling better. Denies lightheadedness, chest pain, shortness of breath. Vitals Vitals Vital Signs Date Time Temp Pulse Resp B/P (MAP) Pulse Ox O2 Delivery O2 Flow Rate FiO2 05/21/17 08:11 18 99 Room Air 05/21/17 07:00 98.8 123 122/62 (82) 98.8 Physical Exam General: Alert, Oriented X3, Cooperative, No acute distress Heart: Regular rate Lungs: Clear Abdomen: Normal bowel sounds, Soft Extremities: No clubbing, No cyanosis, No edema, Normal pulses Skin: No breakdown, No significant lesion Labs LABS Laboratory Tests Test 05/20/17 10:53 05/20/17 11:58 05/20/17 12:00 05/20/17 13:00 Glucose (Fingerstick) 170 mg/dL (70-99) 176 mg/dL (70-99) 158 mg/dL (70-99) Sodium Level 142 mmol/L (136-145) Potassium Level 3.4 mmol/L (3.5-5.1) Chloride Level 110 mmol/L (98-107) Carbon Dioxide Level 14 mmol/L (21-32) Anion Gap 18 (6-14) Blood Urea Nitrogen 8 mg/dL (7-20) Creatinine 1.0 mg/dL (0.6-1.0) Estimated GFR (Cockcroft-Gault) 70.7 Glucose Level 192 mg/dL (70-99) Calcium Level 7.2 mg/dL (8.5-10.1) Phosphorus Level 1.6 mg/dL (2.6-4.7) O2 Saturation 98 % (92-99) Arterial Blood pH 7.29 (7.35-7.45) Arterial Blood pCO2 at Patient Temp 24 mmHg (35-46) Arterial Blood pO2 at Patient Temp 102 mmHg (85-108) Arterial Blood HCO3 11 mmol/L (21-28) Arterial Blood Base Excess -13 mmol/L (-3-3) FiO2 21 Test 05/20/17 14:21 05/20/17 15:30 05/20/17 15:35 05/20/17 17:04 Glucose (Fingerstick) 154 mg/dL (70-99) 123 mg/dL (70-99) 152 mg/dL (70-99) Sodium Level 141 mmol/L (136-145) Potassium Level 3.1 mmol/L (3.5-5.1) Chloride Level 110 mmol/L (98-107) Carbon Dioxide Level 18 mmol/L (21-32) Anion Gap 13 (6-14) Blood Urea Nitrogen 7 mg/dL (7-20) Creatinine 1.0 mg/dL (0.6-1.0) Estimated GFR (Cockcroft-Gault) 70.7 Glucose Level 137 mg/dL (70-99) Calcium Level 6.9 mg/dL (8.5-10.1) Test 05/20/17 18:04 05/20/17 19:19 05/20/17 21:34 05/21/17 05:03 Glucose (Fingerstick) 112 mg/dL (70-99) 79 mg/dL (70-99) 93 mg/dL (70-99) White Blood Count 8.1 x10^3/uL (4.0-11.0) Red Blood Count 4.23 x10^6/uL (3.50-5.40) Hemoglobin 12.1 g/dL (12.0-15.5) Hematocrit 36.0 % (36.0-47.0) Mean Corpuscular Volume 85 fL (79-100) Mean Corpuscular Hemoglobin 29 pg (25-35) Mean Corpuscular Hemoglobin Concent 34 g/dL (31-37) Red Cell Distribution Width 15.2 % (11.5-14.5) Platelet Count 229 x10^3/uL (140-400) Neutrophils (%) (Auto) 77 % (31-73) Lymphocytes (%) (Auto) 15 % (24-48) Monocytes (%) (Auto) 7 % (0-9) Eosinophils (%) (Auto) 1 % (0-3) Basophils (%) (Auto) 0 % (0-3) Neutrophils # (Auto) 6.2 x10^3uL (1.8-7.7) Lymphocytes # (Auto) 1.2 x10^3/uL (1.0-4.8) Monocytes # (Auto) 0.6 x10^3/uL (0.0-1.1) Eosinophils # (Auto) 0.1 x10^3/uL (0.0-0.7) Basophils # (Auto) 0.0 x10^3/uL (0.0-0.2) Sodium Level 140 mmol/L (136-145) Potassium Level 3.4 mmol/L (3.5-5.1) Chloride Level 107 mmol/L (98-107) Carbon Dioxide Level 18 mmol/L (21-32) Anion Gap 15 (6-14) Blood Urea Nitrogen 3 mg/dL (7-20) Creatinine 0.8 mg/dL (0.6-1.0) Estimated GFR (Cockcroft-Gault) 91.4 BUN/Creatinine Ratio 4 (6-20) Glucose Level 176 mg/dL (70-99) Calcium Level 7.9 mg/dL (8.5-10.1) Total Bilirubin 0.5 mg/dL (0.2-1.0) Aspartate Amino Transf (AST/SGOT) 14 U/L (15-37) Alanine Aminotransferase (ALT/SGPT) 23 U/L (14-59) Alkaline Phosphatase 96 U/L (46-116) Total Protein 6.5 g/dL (6.4-8.2) Albumin 3.0 g/dL (3.4-5.0) Albumin/Globulin Ratio 0.9 (1.0-1.7) Test 05/21/17 07:20 Glucose (Fingerstick) 213 mg/dL (70-99) Review of Systems Review of Systems Denies chest pain, shortness of breath lightheadedness. Assessment and Plan Assessmemt and Plan Problems Medical Problems: (1) Diabetic ketoacidosis Status: Acute Diabetic ketoacidosis. Anion gap metabolic acidosis with normal lactic acidosis inappropriate respiratory response acute metabolic encephalopathy weakness lethargy hypokalemia PLAN: Recheck AM labs Insulin NS @ 100ml/hr K+ replacement BIPAP ABG after 2 units bicarb per pulmonology Duoneb PT/OT Problems: Comment Review of Relevant I have reviewed the following items tyra (where applicable) has been applied. Labs Laboratory Tests Test 05/20/17 03:45 05/20/17 03:48 05/20/17 06:00 05/20/17 06:12 White Blood Count 14.0 x10^3/uL (4.0-11.0) Red Blood Count 5.76 x10^6/uL (3.50-5.40) Hemoglobin 16.3 g/dL (12.0-15.5) Hematocrit 52.2 % (36.0-47.0) Mean Corpuscular Volume 91 fL (79-100) Mean Corpuscular Hemoglobin 28 pg (25-35) Mean Corpuscular Hemoglobin Concent 31 g/dL (31-37) Red Cell Distribution Width 16.1 % (11.5-14.5) Platelet Count 386 x10^3/uL (140-400) Neutrophils (%) (Auto) 63 % (31-73) Lymphocytes (%) (Auto) 30 % (24-48) Monocytes (%) (Auto) 6 % (0-9) Eosinophils (%) (Auto) 0 % (0-3) Basophils (%) (Auto) 1 % (0-3) Neutrophils # (Auto) 8.8 x10^3uL (1.8-7.7) Lymphocytes # (Auto) 4.2 x10^3/uL (1.0-4.8) Monocytes # (Auto) 0.9 x10^3/uL (0.0-1.1) Eosinophils # (Auto) 0.0 x10^3/uL (0.0-0.7) Basophils # (Auto) 0.1 x10^3/uL (0.0-0.2) Urine Collection Type Unknown Urine Color Yellow Urine Clarity Clear Urine pH 5.5 Urine Specific [place] >=1.030 Urine Protein 100 mg/dL (NEG-TRACE) Urine Glucose (UA) >=1000 mg/dL (NEG) Urine Ketones (Stick) >=80 mg/dL (NEG) Urine Blood Small (NEG) Urine Nitrite Negative (NEG) Urine Bilirubin Negative (NEG) Urine Urobilinogen Dipstick 0.2 mg/dL (0.2 mg/dL) Urine Leukocyte Esterase Negative (NEG) Urine RBC Occ /HPF (0-2) Urine WBC 1-4 /HPF (0-4) Urine Squamous Epithelial Cells Many /LPF Urine Bacteria Moderate /HPF (0-FEW) Sodium Level 139 mmol/L (136-145) Potassium Level 4.6 mmol/L (3.5-5.1) Chloride Level 98 mmol/L (98-107) Carbon Dioxide Level 7 mmol/L (21-32) Anion Gap 34 (6-14) Blood Urea Nitrogen 15 mg/dL (7-20) Creatinine 1.3 mg/dL (0.6-1.0) Estimated GFR (Cockcroft-Gault) 52.2 BUN/Creatinine Ratio 12 (6-20) Glucose Level 427 mg/dL (70-99) Calcium Level 9.0 mg/dL (8.5-10.1) Phosphorus Level 4.3 mg/dL (2.6-4.7) Magnesium Level 1.7 mg/dL (1.8-2.4) Total Bilirubin 0.4 mg/dL (0.2-1.0) Aspartate Amino Transf (AST/SGOT) 21 U/L (15-37) Alanine Aminotransferase (ALT/SGPT) 37 U/L (14-59) Alkaline Phosphatase 155 U/L (46-116) Total Protein 9.7 g/dL (6.4-8.2) Albumin 4.5 g/dL (3.4-5.0) Albumin/Globulin Ratio 0.9 (1.0-1.7) Lipase 110 U/L (73-393) Urine Opiates Screen Neg (NEG) Urine Methadone Screen Neg (NEG) Urine Barbiturates Neg (NEG) Urine Phencyclidine Screen Neg (NEG) Urine Amphetamine/Methamphetamine Neg (NEG) Urine Benzodiazepines Screen Neg (NEG) Urine Cocaine Screen Neg (NEG) Urine Cannabinoids Screen Neg (NEG) Urine Ethyl Alcohol Neg (NEG) Bedside Urine HCG, Qualitative Hcg negative (Negative) Nasal Screen MRSA (PCR) Positive (Negative) Glucose (Fingerstick) 323 mg/dL (70-99) Test 05/20/17 06:46 05/20/17 07:24 05/20/17 08:05 05/20/17 08:36 O2 Saturation 98 % (92-99) Arterial Blood pH 7.05 (7.35-7.45) Arterial Blood pCO2 at Patient Temp < 15 mmHg (35-46) Arterial Blood pO2 at Patient Temp 125 mmHg (85-108) Arterial Blood HCO3 4 mmol/L (21-28) Arterial Blood Base Excess -25 mmol/L (-3-3) FiO2 21 Glucose (Fingerstick) 211 mg/dL (70-99) 205 mg/dL (70-99) Sodium Level 139 mmol/L (136-145) Potassium Level 4.6 mmol/L (3.5-5.1) Chloride Level 108 mmol/L (98-107) Carbon Dioxide Level 5 mmol/L (21-32) Anion Gap 26 (6-14) Blood Urea Nitrogen 12 mg/dL (7-20) Creatinine 1.0 mg/dL (0.6-1.0) Estimated GFR (Cockcroft-Gault) 70.7 Glucose Level 236 mg/dL (70-99) Calcium Level 7.1 mg/dL (8.5-10.1) Phosphorus Level 2.8 mg/dL (2.6-4.7) Magnesium Level 1.4 mg/dL (1.8-2.4) Salicylates Level 7.1 mg/dL (2.8-20.0) Salicylate Last Dose Date 05/19/17 Salicylate Last Dose Time 1900 Ethyl Alcohol Level < 10 mg/dL (0-10) Test 05/20/17 09:30 05/20/17 09:51 05/20/17 10:53 05/20/17 11:58 Lactic Acid Level 0.7 mmol/L (0.4-2.0) Glucose (Fingerstick) 207 mg/dL (70-99) 170 mg/dL (70-99) 176 mg/dL (70-99) Test 05/20/17 12:00 05/20/17 13:00 05/20/17 14:21 05/20/17 15:30 Sodium Level 142 mmol/L (136-145) Potassium Level 3.4 mmol/L (3.5-5.1) Chloride Level 110 mmol/L (98-107) Carbon Dioxide Level 14 mmol/L (21-32) Anion Gap 18 (6-14) Blood Urea Nitrogen 8 mg/dL (7-20) Creatinine 1.0 mg/dL (0.6-1.0) Estimated GFR (Cockcroft-Gault) 70.7 Glucose Level 192 mg/dL (70-99) Calcium Level 7.2 mg/dL (8.5-10.1) Phosphorus Level 1.6 mg/dL (2.6-4.7) O2 Saturation 98 % (92-99) Arterial Blood pH 7.29 (7.35-7.45) Arterial Blood pCO2 at Patient Temp 24 mmHg (35-46) Arterial Blood pO2 at Patient Temp 102 mmHg (85-108) Arterial Blood HCO3 11 mmol/L (21-28) Arterial Blood Base Excess -13 mmol/L (-3-3) FiO2 21 Glucose (Fingerstick) 158 mg/dL (70-99) 154 mg/dL (70-99) 123 mg/dL (70-99) Test 05/20/17 15:35 05/20/17 17:04 05/20/17 18:04 05/20/17 19:19 Sodium Level 141 mmol/L (136-145) Potassium Level 3.1 mmol/L (3.5-5.1) Chloride Level 110 mmol/L (98-107) Carbon Dioxide Level 18 mmol/L (21-32) Anion Gap 13 (6-14) Blood Urea Nitrogen 7 mg/dL (7-20) Creatinine 1.0 mg/dL (0.6-1.0) Estimated GFR (Cockcroft-Gault) 70.7 Glucose Level 137 mg/dL (70-99) Calcium Level 6.9 mg/dL (8.5-10.1) Glucose (Fingerstick) 152 mg/dL (70-99) 112 mg/dL (70-99) 79 mg/dL (70-99) Test 05/20/17 21:34 05/21/17 05:03 05/21/17 07:20 Glucose (Fingerstick) 93 mg/dL (70-99) 213 mg/dL (70-99) White Blood Count 8.1 x10^3/uL (4.0-11.0) Red Blood Count 4.23 x10^6/uL (3.50-5.40) Hemoglobin 12.1 g/dL (12.0-15.5) Hematocrit 36.0 % (36.0-47.0) Mean Corpuscular Volume 85 fL (79-100) Mean Corpuscular Hemoglobin 29 pg (25-35) Mean Corpuscular Hemoglobin Concent 34 g/dL (31-37) Red Cell Distribution Width 15.2 % (11.5-14.5) Platelet Count 229 x10^3/uL (140-400) Neutrophils (%) (Auto) 77 % (31-73) Lymphocytes (%) (Auto) 15 % (24-48) Monocytes (%) (Auto) 7 % (0-9) Eosinophils (%) (Auto) 1 % (0-3) Basophils (%) (Auto) 0 % (0-3) Neutrophils # (Auto) 6.2 x10^3uL (1.8-7.7) Lymphocytes # (Auto) 1.2 x10^3/uL (1.0-4.8) Monocytes # (Auto) 0.6 x10^3/uL (0.0-1.1) Eosinophils # (Auto) 0.1 x10^3/uL (0.0-0.7) Basophils # (Auto) 0.0 x10^3/uL (0.0-0.2) Sodium Level 140 mmol/L (136-145) Potassium Level 3.4 mmol/L (3.5-5.1) Chloride Level 107 mmol/L (98-107) Carbon Dioxide Level 18 mmol/L (21-32) Anion Gap 15 (6-14) Blood Urea Nitrogen 3 mg/dL (7-20) Creatinine 0.8 mg/dL (0.6-1.0) Estimated GFR (Cockcroft-Gault) 91.4 BUN/Creatinine Ratio 4 (6-20) Glucose Level 176 mg/dL (70-99) Calcium Level 7.9 mg/dL (8.5-10.1) Total Bilirubin 0.5 mg/dL (0.2-1.0) Aspartate Amino Transf (AST/SGOT) 14 U/L (15-37) Alanine Aminotransferase (ALT/SGPT) 23 U/L (14-59) Alkaline Phosphatase 96 U/L (46-116) Total Protein 6.5 g/dL (6.4-8.2) Albumin 3.0 g/dL (3.4-5.0) Albumin/Globulin Ratio 0.9 (1.0-1.7) Laboratory Tests Test 05/20/17 10:53 05/20/17 11:58 05/20/17 12:00 05/20/17 13:00 Glucose (Fingerstick) 170 mg/dL (70-99) 176 mg/dL (70-99) 158 mg/dL (70-99) Sodium Level 142 mmol/L (136-145) Potassium Level 3.4 mmol/L (3.5-5.1) Chloride Level 110 mmol/L (98-107) Carbon Dioxide Level 14 mmol/L (21-32) Anion Gap 18 (6-14) Blood Urea Nitrogen 8 mg/dL (7-20) Creatinine 1.0 mg/dL (0.6-1.0) Estimated GFR (Cockcroft-Gault) 70.7 Glucose Level 192 mg/dL (70-99) Calcium Level 7.2 mg/dL (8.5-10.1) Phosphorus Level 1.6 mg/dL (2.6-4.7) O2 Saturation 98 % (92-99) Arterial Blood pH 7.29 (7.35-7.45) Arterial Blood pCO2 at Patient Temp 24 mmHg (35-46) Arterial Blood pO2 at Patient Temp 102 mmHg (85-108) Arterial Blood HCO3 11 mmol/L (21-28) Arterial Blood Base Excess -13 mmol/L (-3-3) FiO2 21 Test 05/20/17 14:21 05/20/17 15:30 05/20/17 15:35 05/20/17 17:04 Glucose (Fingerstick) 154 mg/dL (70-99) 123 mg/dL (70-99) 152 mg/dL (70-99) Sodium Level 141 mmol/L (136-145) Potassium Level 3.1 mmol/L (3.5-5.1) Chloride Level 110 mmol/L (98-107) Carbon Dioxide Level 18 mmol/L (21-32) Anion Gap 13 (6-14) Blood Urea Nitrogen 7 mg/dL (7-20) Creatinine 1.0 mg/dL (0.6-1.0) Estimated GFR (Cockcroft-Gault) 70.7 Glucose Level 137 mg/dL (70-99) Calcium Level 6.9 mg/dL (8.5-10.1) Test 05/20/17 18:04 05/20/17 19:19 05/20/17 21:34 05/21/17 05:03 Glucose (Fingerstick) 112 mg/dL (70-99) 79 mg/dL (70-99) 93 mg/dL (70-99) White Blood Count 8.1 x10^3/uL (4.0-11.0) Red Blood Count 4.23 x10^6/uL (3.50-5.40) Hemoglobin 12.1 g/dL (12.0-15.5) Hematocrit 36.0 % (36.0-47.0) Mean Corpuscular Volume 85 fL (79-100) Mean Corpuscular Hemoglobin 29 pg (25-35) Mean Corpuscular Hemoglobin Concent 34 g/dL (31-37) Red Cell Distribution Width 15.2 % (11.5-14.5) Platelet Count 229 x10^3/uL (140-400) Neutrophils (%) (Auto) 77 % (31-73) Lymphocytes (%) (Auto) 15 % (24-48) Monocytes (%) (Auto) 7 % (0-9) Eosinophils (%) (Auto) 1 % (0-3) Basophils (%) (Auto) 0 % (0-3) Neutrophils # (Auto) 6.2 x10^3uL (1.8-7.7) Lymphocytes # (Auto) 1.2 x10^3/uL (1.0-4.8) Monocytes # (Auto) 0.6 x10^3/uL (0.0-1.1) Eosinophils # (Auto) 0.1 x10^3/uL (0.0-0.7) Basophils # (Auto) 0.0 x10^3/uL (0.0-0.2) Sodium Level 140 mmol/L (136-145) Potassium Level 3.4 mmol/L (3.5-5.1) Chloride Level 107 mmol/L (98-107) Carbon Dioxide Level 18 mmol/L (21-32) Anion Gap 15 (6-14) Blood Urea Nitrogen 3 mg/dL (7-20) Creatinine 0.8 mg/dL (0.6-1.0) Estimated GFR (Cockcroft-Gault) 91.4 BUN/Creatinine Ratio 4 (6-20) Glucose Level 176 mg/dL (70-99) Calcium Level 7.9 mg/dL (8.5-10.1) Total Bilirubin 0.5 mg/dL (0.2-1.0) Aspartate Amino Transf (AST/SGOT) 14 U/L (15-37) Alanine Aminotransferase (ALT/SGPT) 23 U/L (14-59) Alkaline Phosphatase 96 U/L (46-116) Total Protein 6.5 g/dL (6.4-8.2) Albumin 3.0 g/dL (3.4-5.0) Albumin/Globulin Ratio 0.9 (1.0-1.7) Test 05/21/17 07:20 Glucose (Fingerstick) 213 mg/dL (70-99) Medications Current Medications Ondansetron HCl (Zofran) 4 mg 1X ONCE IV Last administered on 05/20/17 04:12 ; Start 05/20/17 at 04:30; Stop 05/20/17 at 04:31; Status DC Hydromorphone HCl (Dilaudid) 1 mg 1X ONCE IV Last administered on 05/20/17 04:12; Start 05/20/17 at 04:30; Stop 05/20/17 at 04:31; Status DC Ketorolac Tromethamine (Toradol) 15 mg 1X ONCE IV Last administered on 04:12; Start 05/20/17 at 04:30; Stop 05/20/17 at 04:31; Status DC Sodium Chloride 1,000 ml @ 1,000 mls/hr 1X ONCE IV Last administered on 05/20 04:13; Start 05/20/17 at 04:30; Stop 05/20/17 at 05:29; Status DC Sodium Chloride 1,000 ml @ 1,000 mls/hr 1X ONCE IV Last administered on 05/20 04:58; Start 05/20/17 at 04:45; Stop 05/20/17 at 05:44; Status DC Insulin Human Regular 150 unit/ Sodium Chloride 151.5 ml @ 0 mls/hr CONT PRN PRN IV PER PROTOCOL; Start 05/20/17 at 04:45; Stop 05/20/17 at 04:51; Status DC Potassium Chloride 100 ml @ 100 mls/hr PRN Q1HR PRN IV SEE COMMENTS; Start at 04:45 Potassium Chloride 100 ml @ 100 mls/hr PRN Q1HR PRN IV SEE COMMENTS; Start at 04:45 Potassium Chloride 100 ml @ 100 mls/hr PRN Q1HR PRN IV SEE COMMENTS; Start at 04:45 Insulin Human Regular 150 unit/ Sodium Chloride 151.5 ml @ 0 mls/hr CONT PRN PRN IV PER PROTOCOL Last administered on 05/20/17 05:09; Start 05/20/17 at 04 :51 Hydromorphone HCl (Dilaudid) 0.5 mg 1X ONCE IV Last administered on 04:58; Start 05/20/17 at 05:15; Stop 05/20/17 at 05:16; Status DC Hydromorphone HCl (Dilaudid) 0.5 mg PRN Q2HR PRN IV SEVERE PAIN Last administered on 05/21/17 06:47; Start 05/20/17 at 05:45 Sodium Chloride 1,000 ml @ 1,000 mls/hr 1X ONCE IV Last administered on 05/20 06:18; Start 05/20/17 at 06:30; Stop 05/20/17 at 07:29; Status DC Dextrose/Sodium Chloride 1,000 ml @ 250 mls/hr Q4H IV Last administered on 15:00; Start 05/20/17 at 07:45; Stop 05/20/17 at 17:26; Status DC Magnesium Sulfate/ Dextrose 100 ml @ 25 mls/hr 1X ONCE IV Last administered on 05/20/17 09:52; Start 05/20/17 at 09:00; Stop 05/20/17 at 12:59; Status DC Enoxaparin Sodium (Lovenox Per Pharmacy Prophylaxis Dosing) 1 each PRN DAILY PRN MC SEE COMMENTS; Start 05/20/17 at 09:15 Albuterol/ Ipratropium (Duoneb) 3 ml RTQID NEB Last administered on 05/21/17 07:34; Start 05/20/17 at 12:00 Enoxaparin Sodium (Lovenox 40mg Syringe) 40 mg Q24H SQ Last administered on 10:34; Start 05/20/17 at 10:00 Sodium Bicarbonate 100 meq 1X ONCE IV Last administered on 05/20/17 10:25; Start 05/20/17 at 09:45; Stop 05/20/17 at 09:46; Status DC Potassium Chloride 100 ml @ 100 mls/hr Q1H IV Last administered on 05/20/17 18:07; Start 05/20/17 at 14:00; Stop 05/20/17 at 17:59; Status DC Potassium Phosphate 13.6 mmol/Sodium Chloride 254.5333 ml @ 62.5 mls/hr 1X ONCE IV Last administered on 05/20/17 19:08; Start 05/20/17 at 18:00; Stop 05/20/17 at 22:04; Status DC Insulin Detemir (Levemir) 20 units QHS SQ Last administered on 05/20/17 17:06 ; Start 05/20/17 at 17:00 Insulin Aspart (NovoLOG) 10 units TIDAC SQ Last administered on 05/21/17 08: 21; Start 05/20/17 at 17:00 Insulin Aspart (NovoLOG) 0-7 UNITS QIDACHS SQ Last administered on 05/21/17 08:22; Start 05/20/17 at 21:00 Dextrose (Dextrose 50%-Water Syringe) 12.5 gm PRN Q15MIN PRN IV SEE COMMENTS; Start 05/20/17 at 17:00 Sodium Chloride 1,000 ml @ 100 mls/hr Q10H IV Last administered on 05/21/17 02:44; Start 05/20/17 at 17:00 Ondansetron HCl (Zofran) 4 mg PRN Q4HRS PRN IV NAUSEA/VOMITING Last administered on 05/21/17 06:48; Start 05/20/17 at 22:00 Active Scripts Active Vitals/I & O Vital Sign - Last 24 Hours 05/20/17 05/20/17 05/20/17 05/20/17 11:00 11:35 12:00 12:35 Pulse 111 112 Resp 20 17 B/P (MAP) 105/60 (75) 92/59 (70) Pulse Ox 99 99 99 100 O2 Delivery BiPAP/CPAP BiPAP/CPAP Room Air Room Air 05/20/17 05/20/17 05/20/17 05/20/17 13:02 14:00 15:00 15:44 Pulse 114 112 108 Resp 11 10 11 B/P (MAP) 96/57 (70) 109/51 (70) 117/52 (73) Pulse Ox 100 99 99 100 O2 Delivery Room Air Room Air Room Air Room Air 1205/20/17 05/20/17 05/20/17 15:55 16:00 17:00 19:00 Temp 98.5 98.4 98.5 98.4 Pulse 122 120 114 Resp 16 10 14 12 B/P (MAP) 95/40 (58) 106/52 (70) 112/61 (78) Pulse Ox 100 99 99 98 O2 Delivery Room Air Room Air Room Air Room Air 05/20/17 05/20/17 05/20/17 05/21/17 19:22 22:57 23:20 02:45 Temp 97.8 97.8 Pulse 106 Resp 16 18 18 B/P (MAP) 106/58 (74) Pulse Ox 100 98 98 98 O2 Delivery Room Air Room Air Room Air Room Air 05/21/17 05/21/17 05/21/17 05/21/17 03:02 06:47 07:00 07:35 Temp 99.2 98.8 99.2 98.8 Pulse 109 123 Resp 18 18 16 B/P (MAP) 116/70 (85) 122/62 (82) Pulse Ox 94 94 95 99 O2 Delivery Room Air Room Air Room Air 05/21/17 08:11 Resp 18 Pulse Ox 99 O2 Delivery Room Air Intake and Output 05/20/17 05/20/17 05/21/17 14:59 22:59 06:59 Intake Total 270 ml 5646 ml 320 ml Output Total 650 ml Balance -380 ml 5646 ml 320 ml FRANCISCO JAVIERNIAL K III DO May 21, 2017 10:15
[2017-05-21] MEDS: ENOXAPARIN 40 MG/0.4 ML SYRINGE. SQ SCH (10:30)
[2017-05-21] MEDS ORDERED: POTASSIUM CHLORIDE 20 MEQ TABLET.ER. PO ONE (10:30)
[2017-05-21 10:44] VITALS: BP 116/69
--- NOTE | 2017-05-21 11:16 | PDOC ---
Provider Note Provider Note Pt seen dictated [id number] IMP: Leucocytosis reactive DKA REC: continue tx for DKA will start on empiric zosyn for now will taper soon KACIE SEPULVEDA MD May 21, 2017 11:16
[2017-05-21] MEDS ORDERED: PIPERACILLIN/TAZOBACTAM 3.375 GM in IV DEXTROSE 5% 50 ML IV SCH (12:00)
[2017-05-21] MEDS: PIPERACILLIN/TAZO IV Push 3.375 GM VIAL. IVP SCH ×2 (12:10→17:19)
[2017-05-21 15:00] VITALS: BP 117/67
--- NOTE | 2017-05-21 15:09 | CONS ---
DATE OF CONSULTATION: CONSULTING PHYSICIAN: Dr. Nunez. REASON FOR CONSULTATION: Sepsis. HISTORY OF PRESENT ILLNESS: A 22-year-old female with past medical history significant for diabetes mellitus type 1 and DKA 4 months ago, presented to ER on 05/20/2017 after having nausea, left-sided flank pain and diarrhea. The patient reports to eating cold tamale at work, which was lying outside for a few days, which she came to know later. She denied any fevers or chills. Did have abdominal pain and cramping. She had last episode of DKA 4 months ago at which time she was admitted to [facility]. She was found to have severe metabolic acidosis. Chest x-ray did not reveal any infiltrate. Her blood sugars were elevated at 427 with a bicarbonate of 7 and with anion gap metabolic acidosis. Her creatinine was elevated at 1.3, BUN was 15. Her alkaline phosphatase was 155 with a total protein of 9.7. Lactic acid was normal. Due to concerns of sepsis, Infectious Disease has been consulted. PAST MEDICAL HISTORY: Diabetes. SOCIAL HISTORY: Denies smoking, ETOH, or illicit drug use. Works at [employer]. PAST SURGICAL HISTORY: None. ALLERGIES: NONE. CURRENT MEDICATIONS: Reviewed in [facility]. REVIEW OF SYSTEMS: Still has nausea. Whenever she coughs, she has flank pain. Denies any vomiting, denies any fever, chills, headache, sore throat, oral lesions, visual disturbances, neck pain, diarrhea, abdominal cramps, symptoms, rash, joint pain, heartburn or melena. PHYSICAL EXAMINATION: GENERAL: Alert, oriented x3, weak-appearing female, in no acute distress. VITAL SIGNS: Temperature 98.8, T-max 99, pulse 55, respiratory rate 16, blood pressure 116/69, oxygen saturation 97% on room air. HEENT: Anicteric. Oral mucosa moist. Tongue midline. Pupils are equal and reactive. Extraocular movements are intact. NECK: Supple. No JVD. LUNGS: Clear bilaterally. No wheezing. CARDIOVASCULAR: S1, S2 present. No gallops or murmurs. ABDOMEN: Soft, bowel sounds present. No rebound, no guarding. EXTREMITIES: No edema. Peripheral lines look clean. CENTRAL NERVOUS SYSTEM: Grossly nonfocal. MUSCULOSKELETAL: No joint effusion or erythema noted. PSYCHIATRIC: Appropriate mood and affect. LABORATORY DATA: WBC 8.1, was 14.0, hemoglobin 12.1, hematocrit 36, platelet 229, neutrophils 77%. Sodium 140, potassium 3.4, chloride 107, bicarbonate 18, was down to 7. Anion gap 15, BUN 3, creatinine 0.8, glucose 176, calcium 7.9. Total bilirubin 0.5, AST 14, ALT 23, alkaline phosphatase 96, total protein 6.5, albumin 3.0, lactic 0.7, magnesium 1.4, lipase 110. RADIOLOGY: Abdomen and pelvis CT reported negative. Chest x-ray, impression: No acute cardiopulmonary process. IMPRESSION: 1. Leukocytosis, possibly reactive, now resolved. 2. Diabetic ketoacidosis. 3. Severe metabolic acidosis secondary to diabetic ketoacidosis. 4. Anion gap metabolic acidosis with normal lactate. 5. High alkaline phosphatase, now resolved, secondary to nausea. 6. Nausea from diabetic ketoacidosis, resolving. 7. Abdominal pain, resolved. 8. Diarrhea, resolved. RECOMMENDATIONS: 1. Start empiric Zosyn for now. 2. Maintain Aspiration precaution. 3. We will wean off antibiotics soon. 4. Management of diabetic ketoacidosis as per primary care. Discussed with the patient and her mother. Thank you, Dr. Nunez for consulting Infectious Disease physician, we will follow along with you. KACIE SEPULVEDA MD DR: ALVIN/qiana JOB#: [id number] / [id number]
[2017-05-21 19:30] VITALS: BP 105/51
[2017-05-21] MEDS: INSULIN DETEMIR 300 UNITS/3 ML INSULN.PEN. SQ SCH (21:51)
[2017-05-21 23:37] VITALS: BP 115/67
[2017-05-22] MEDS: HYDROmorphone 2 MG/ML VIAL IV PRN (00:14)
[2017-05-22] MEDS: PIPERACILLIN/TAZO IV Push 3.375 GM VIAL. IVP SCH ×2 (00:17→06:26)
[2017-05-22] MEDS ORDERED: INSU100V8 SQ (00:26)
[2017-05-22] MEDS ORDERED: INSU100C4 SQ (00:26)
[2017-05-22] MEDS: IV NORMAL SALINE 1000ML BAG 1,000 ML IV SCH ×2 (00:31→09:46)
[2017-05-22 03:35] LABS: BASO # 0.1 x10^3/uL (0.0-0.2); BASO % 1 % (0-3); EOS % 2 % (0-3); HEMATOCRIT 33.4 % (36.0-47.0); HEMOGLOBIN 11.1 g/dL (12.0-15.5); LYMPH # 1.9 x10^3/uL (1.0-4.8); LYMPH % 37 % (24-48); MEAN CORPUSCULAR HEMOGLOBIN 29 pg (25-35); MEAN CORPUSCULAR HGB CONC 33 g/dL (31-37); MEAN CORPUSCULAR VOLUME 86 fL (79-100); MONO % 10 % (0-9); NEUT % 50 % (31-73); PLATELET COUNT 182 x10^3/uL (140-400); RED BLOOD COUNT 3.89 x10^6/uL (3.50-5.40); RED CELL DISTRIBUTION WIDTH 15.1 % (11.5-14.5); WHITE BLOOD COUNT 5.3 x10^3/uL (4.0-11.0)
[2017-05-22 03:36] VITALS: BP 108/59
[2017-05-22 04:07] LABS: ALBUMIN 2.5 g/dL (3.4-5.0); ALBUMIN/GLOBULIN RATIO 0.8 (1.0-1.7); CALCIUM 7.6 mg/dL (8.5-10.1); CREATININE 0.8 mg/dL (0.6-1.0); GFR 91.4; TOTAL BILIRUBIN 0.2 mg/dL (0.2-1.0); TOTAL PROTEIN 5.8 g/dL (6.4-8.2)
[2017-05-22 07:28] VITALS: BP 123/79
[2017-05-22] MEDS: IPRATRPIUM/ALBUTEROL 0.5/2.5MG 3 ML NEBU. NEB SCH ×2 (07:32→11:08)
[2017-05-22] MEDS: INSULIN ASPART 300 UNITS/3 ML INSULN.PEN SQ SCH ×4 (08:44→11:49)
[2017-05-22] MEDS ORDERED: ACETAMINOPHEN 325 MG TABLET. PO PRN (09:00)
[2017-05-22] MEDS: ENOXAPARIN 40 MG/0.4 ML SYRINGE. SQ SCH (09:45)
[2017-05-22] MEDS ORDERED: LACTOBACILLUS RHAMNOSUS GG 1 CAPSULE. PO SCH (10:00)
[2017-05-22] MEDS ORDERED: IBUPROFEN 600 MG TABLET. PO ONE (10:00)
[2017-05-22] MEDS ORDERED: POTASSIUM CHLORIDE 20 MEQ TABLET.ER. PO ONE (10:00)
--- NOTE | 2017-05-22 10:03 | PDOC3 ---
Discharge Summary Visit Information Date of Admission: May 20, 2017 Date of Discharge: May 22, 2017 Admitting Diagnosis Comment: DKA Final Diagnosis Problems Medical Problems: (1) Diabetic ketoacidosis Status: Acute Brief Hospital Course Allergies Allergies Coded Allergies Type Severity Reaction Last Updated Verified No Known Drug Allergies 06/19/13 No Vital Signs Vital Signs Date Time Temp Pulse Resp B/P (MAP) Pulse Ox O2 Delivery O2 Flow Rate FiO2 05/22/17 07:33 95 Room Air 05/22/17 07:28 98.6 97 18 123/79 (94) 98.6 Lab Results Laboratory Tests Test 05/20/17 10:53 05/20/17 11:58 05/20/17 12:00 05/20/17 13:00 Glucose (Fingerstick) 170 mg/dL (70-99) 176 mg/dL (70-99) 158 mg/dL (70-99) Sodium Level 142 mmol/L (136-145) Potassium Level 3.4 mmol/L (3.5-5.1) Chloride Level 110 mmol/L (98-107) Carbon Dioxide Level 14 mmol/L (21-32) Anion Gap 18 (6-14) Blood Urea Nitrogen 8 mg/dL (7-20) Creatinine 1.0 mg/dL (0.6-1.0) Estimated GFR (Cockcroft-Gault) 70.7 Glucose Level 192 mg/dL (70-99) Calcium Level 7.2 mg/dL (8.5-10.1) Phosphorus Level 1.6 mg/dL (2.6-4.7) O2 Saturation 98 % (92-99) Arterial Blood pH 7.29 (7.35-7.45) Arterial Blood pCO2 at Patient Temp 24 mmHg (35-46) Arterial Blood pO2 at Patient Temp 102 mmHg (85-108) Arterial Blood HCO3 11 mmol/L (21-28) Arterial Blood Base Excess -13 mmol/L (-3-3) FiO2 21 Test 05/20/17 14:21 05/20/17 15:30 05/20/17 15:35 05/20/17 17:04 Glucose (Fingerstick) 154 mg/dL (70-99) 123 mg/dL (70-99) 152 mg/dL (70-99) Sodium Level 141 mmol/L (136-145) Potassium Level 3.1 mmol/L (3.5-5.1) Chloride Level 110 mmol/L (98-107) Carbon Dioxide Level 18 mmol/L (21-32) Anion Gap 13 (6-14) Blood Urea Nitrogen 7 mg/dL (7-20) Creatinine 1.0 mg/dL (0.6-1.0) Estimated GFR (Cockcroft-Gault) 70.7 Glucose Level 137 mg/dL (70-99) Calcium Level 6.9 mg/dL (8.5-10.1) Test 05/20/17 18:04 05/20/17 19:19 05/20/17 21:34 05/21/17 05:03 Glucose (Fingerstick) 112 mg/dL (70-99) 79 mg/dL (70-99) 93 mg/dL (70-99) White Blood Count 8.1 x10^3/uL (4.0-11.0) Red Blood Count 4.23 x10^6/uL (3.50-5.40) Hemoglobin 12.1 g/dL (12.0-15.5) Hematocrit 36.0 % (36.0-47.0) Mean Corpuscular Volume 85 fL (79-100) Mean Corpuscular Hemoglobin 29 pg (25-35) Mean Corpuscular Hemoglobin Concent 34 g/dL (31-37) Red Cell Distribution Width 15.2 % (11.5-14.5) Platelet Count 229 x10^3/uL (140-400) Neutrophils (%) (Auto) 77 % (31-73) Lymphocytes (%) (Auto) 15 % (24-48) Monocytes (%) (Auto) 7 % (0-9) Eosinophils (%) (Auto) 1 % (0-3) Basophils (%) (Auto) 0 % (0-3) Neutrophils # (Auto) 6.2 x10^3uL (1.8-7.7) Lymphocytes # (Auto) 1.2 x10^3/uL (1.0-4.8) Monocytes # (Auto) 0.6 x10^3/uL (0.0-1.1) Eosinophils # (Auto) 0.1 x10^3/uL (0.0-0.7) Basophils # (Auto) 0.0 x10^3/uL (0.0-0.2) Sodium Level 140 mmol/L (136-145) Potassium Level 3.4 mmol/L (3.5-5.1) Chloride Level 107 mmol/L (98-107) Carbon Dioxide Level 18 mmol/L (21-32) Anion Gap 15 (6-14) Blood Urea Nitrogen 3 mg/dL (7-20) Creatinine 0.8 mg/dL (0.6-1.0) Estimated GFR (Cockcroft-Gault) 91.4 BUN/Creatinine Ratio 4 (6-20) Glucose Level 176 mg/dL (70-99) Calcium Level 7.9 mg/dL (8.5-10.1) Total Bilirubin 0.5 mg/dL (0.2-1.0) Aspartate Amino Transf (AST/SGOT) 14 U/L (15-37) Alanine Aminotransferase (ALT/SGPT) 23 U/L (14-59) Alkaline Phosphatase 96 U/L (46-116) Total Protein 6.5 g/dL (6.4-8.2) Albumin 3.0 g/dL (3.4-5.0) Albumin/Globulin Ratio 0.9 (1.0-1.7) Test 05/21/17 07:20 05/21/17 11:10 05/21/17 16:34 05/21/17 21:28 Glucose (Fingerstick) 213 mg/dL (70-99) 147 mg/dL (70-99) 160 mg/dL (70-99) 163 mg/dL (70-99) Test 05/22/17 03:10 05/22/17 07:41 White Blood Count 5.3 x10^3/uL (4.0-11.0) Red Blood Count 3.89 x10^6/uL (3.50-5.40) Hemoglobin 11.1 g/dL (12.0-15.5) Hematocrit 33.4 % (36.0-47.0) Mean Corpuscular Volume 86 fL (79-100) Mean Corpuscular Hemoglobin 29 pg (25-35) Mean Corpuscular Hemoglobin Concent 33 g/dL (31-37) Red Cell Distribution Width 15.1 % (11.5-14.5) Platelet Count 182 x10^3/uL (140-400) Neutrophils (%) (Auto) 50 % (31-73) Lymphocytes (%) (Auto) 37 % (24-48) Monocytes (%) (Auto) 10 % (0-9) Eosinophils (%) (Auto) 2 % (0-3) Basophils (%) (Auto) 1 % (0-3) Neutrophils # (Auto) 2.6 x10^3uL (1.8-7.7) Lymphocytes # (Auto) 1.9 x10^3/uL (1.0-4.8) Monocytes # (Auto) 0.5 x10^3/uL (0.0-1.1) Eosinophils # (Auto) 0.1 x10^3/uL (0.0-0.7) Basophils # (Auto) 0.1 x10^3/uL (0.0-0.2) Sodium Level 142 mmol/L (136-145) Potassium Level 3.0 mmol/L (3.5-5.1) Chloride Level 106 mmol/L (98-107) Carbon Dioxide Level 22 mmol/L (21-32) Anion Gap 14 (6-14) Blood Urea Nitrogen 2 mg/dL (7-20) Creatinine 0.8 mg/dL (0.6-1.0) Estimated GFR (Cockcroft-Gault) 91.4 BUN/Creatinine Ratio 3 (6-20) Glucose Level 281 mg/dL (70-99) Calcium Level 7.6 mg/dL (8.5-10.1) Total Bilirubin 0.2 mg/dL (0.2-1.0) Aspartate Amino Transf (AST/SGOT) 26 U/L (15-37) Alanine Aminotransferase (ALT/SGPT) 23 U/L (14-59) Alkaline Phosphatase 94 U/L (46-116) Total Protein 5.8 g/dL (6.4-8.2) Albumin 2.5 g/dL (3.4-5.0) Albumin/Globulin Ratio 0.8 (1.0-1.7) Glucose (Fingerstick) 282 mg/dL (70-99) Laboratory Tests Test 05/21/17 11:10 05/21/17 16:34 05/21/17 21:28 05/22/17 03:10 Glucose (Fingerstick) 147 mg/dL (70-99) 160 mg/dL (70-99) 163 mg/dL (70-99) White Blood Count 5.3 x10^3/uL (4.0-11.0) Red Blood Count 3.89 x10^6/uL (3.50-5.40) Hemoglobin 11.1 g/dL (12.0-15.5) Hematocrit 33.4 % (36.0-47.0) Mean Corpuscular Volume 86 fL (79-100) Mean Corpuscular Hemoglobin 29 pg (25-35) Mean Corpuscular Hemoglobin Concent 33 g/dL (31-37) Red Cell Distribution Width 15.1 % (11.5-14.5) Platelet Count 182 x10^3/uL (140-400) Neutrophils (%) (Auto) 50 % (31-73) Lymphocytes (%) (Auto) 37 % (24-48) Monocytes (%) (Auto) 10 % (0-9) Eosinophils (%) (Auto) 2 % (0-3) Basophils (%) (Auto) 1 % (0-3) Neutrophils # (Auto) 2.6 x10^3uL (1.8-7.7) Lymphocytes # (Auto) 1.9 x10^3/uL (1.0-4.8) Monocytes # (Auto) 0.5 x10^3/uL (0.0-1.1) Eosinophils # (Auto) 0.1 x10^3/uL (0.0-0.7) Basophils # (Auto) 0.1 x10^3/uL (0.0-0.2) Sodium Level 142 mmol/L (136-145) Potassium Level 3.0 mmol/L (3.5-5.1) Chloride Level 106 mmol/L (98-107) Carbon Dioxide Level 22 mmol/L (21-32) Anion Gap 14 (6-14) Blood Urea Nitrogen 2 mg/dL (7-20) Creatinine 0.8 mg/dL (0.6-1.0) Estimated GFR (Cockcroft-Gault) 91.4 BUN/Creatinine Ratio 3 (6-20) Glucose Level 281 mg/dL (70-99) Calcium Level 7.6 mg/dL (8.5-10.1) Total Bilirubin 0.2 mg/dL (0.2-1.0) Aspartate Amino Transf (AST/SGOT) 26 U/L (15-37) Alanine Aminotransferase (ALT/SGPT) 23 U/L (14-59) Alkaline Phosphatase 94 U/L (46-116) Total Protein 5.8 g/dL (6.4-8.2) Albumin 2.5 g/dL (3.4-5.0) Albumin/Globulin Ratio 0.8 (1.0-1.7) Test 05/22/17 07:41 Glucose (Fingerstick) 282 mg/dL (70-99) Brief Hospital Course Ms. Qureshi is a 22 old [place] female but can understand and speak fluent [place], known type 1 diabetes, and self-pay, follows in the"di[facility] center". She claims she was in a alliance party, she ate a little bit more than usual. She did give herself 17 units instead of the 10 units 3 times a day with meals that she usually does. She also takes Lantus 40 units subcutaneous daily at bedtime. She did not run out but iss almost running out. She came in in DKA. MAnaged in the ICU with DKA protocol. Blood sugars are much better. Some headaches on discharge , chronic for her. Did advise her to take ibuprofen [id number]. Her home regimen was not restarted as her by mouth intake is on the low side but greater than 50% of her tray. Did advise her heavy education and counseling today on day of discharge, she is a long-time diabetic and knows what to do. I have renewed her Lantus 40 units subcutaneous daily at bedtime 1 month supply with 2 refills and NovoLog 10 units 3 times a day subcutaneous with meals one month supply with 2 refills. Patient seen and examined, discharge discussed with RN at bedside. Discharge disposition home discharge medications as above consults infectious disease and renal, which are all secondary to DKA. No intervention from them Time 31 minutes Discharge Information Condition at Discharge: Improved, Stable Disposition/Orders: D/C to Home Scheduled Insulin Aspart (Novolog), 10 UNIT SQ TIDAFTMEAL, (Reported) Insulin Glargine,Hum.rec.anlog (Lantus), 40 UNIT SQ QHS, (Reported) TORO HELTON MD May 22, 2017 10:03
[2017-05-22 10:40] VITALS: BP 124/75
--- NOTE | 2017-05-22 11:17 | PDOC ---
Infectious Disease Note Subjective Subjective C/o MAYO otherwise better. mild dry throat ROS ROS GEN: Denies fevers, chills, sweats HEENT: Denies blurred vision CV: Denies chest pain RESP: Denies shortness of air, cough GI: Denies n/v/d NEURO: Denies confusion, dizziness MSK: Denies weakness, joint pain/swelling Vital Sign Vital Signs Vital Signs Date Time Temp Pulse Resp B/P (MAP) Pulse Ox O2 Delivery O2 Flow Rate FiO2 05/22/17 11:09 Room Air 05/22/17 10:40 98.0 94 18 124/75 (91) 96 98.0 Physical Exam PHYSICAL EXAM GENERAL: NAD, Alert HEENT: PERRL, OC/OP - clear NECK: Supple, no JVD, no LN LUNGS: Clear HEART: S1S2, no gallop, no murmur ABD: Soft, NT, no organomegaly, no rebound EXT: No edema, 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, 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, no focal neurologic deficit SKIN: No rash IV: ok Labs Lab Laboratory Tests Test 05/21/17 16:34 05/21/17 21:28 05/22/17 03:10 05/22/17 07:41 Glucose (Fingerstick) 160 mg/dL (70-99) 163 mg/dL (70-99) 282 mg/dL (70-99) White Blood Count 5.3 x10^3/uL (4.0-11.0) Red Blood Count 3.89 x10^6/uL (3.50-5.40) Hemoglobin 11.1 g/dL (12.0-15.5) Hematocrit 33.4 % (36.0-47.0) Mean Corpuscular Volume 86 fL (79-100) Mean Corpuscular Hemoglobin 29 pg (25-35) Mean Corpuscular Hemoglobin Concent 33 g/dL (31-37) Red Cell Distribution Width 15.1 % (11.5-14.5) Platelet Count 182 x10^3/uL (140-400) Neutrophils (%) (Auto) 50 % (31-73) Lymphocytes (%) (Auto) 37 % (24-48) Monocytes (%) (Auto) 10 % (0-9) Eosinophils (%) (Auto) 2 % (0-3) Basophils (%) (Auto) 1 % (0-3) Neutrophils # (Auto) 2.6 x10^3uL (1.8-7.7) Lymphocytes # (Auto) 1.9 x10^3/uL (1.0-4.8) Monocytes # (Auto) 0.5 x10^3/uL (0.0-1.1) Eosinophils # (Auto) 0.1 x10^3/uL (0.0-0.7) Basophils # (Auto) 0.1 x10^3/uL (0.0-0.2) Sodium Level 142 mmol/L (136-145) Potassium Level 3.0 mmol/L (3.5-5.1) Chloride Level 106 mmol/L (98-107) Carbon Dioxide Level 22 mmol/L (21-32) Anion Gap 14 (6-14) Blood Urea Nitrogen 2 mg/dL (7-20) Creatinine 0.8 mg/dL (0.6-1.0) Estimated GFR (Cockcroft-Gault) 91.4 BUN/Creatinine Ratio 3 (6-20) Glucose Level 281 mg/dL (70-99) Calcium Level 7.6 mg/dL (8.5-10.1) Total Bilirubin 0.2 mg/dL (0.2-1.0) Aspartate Amino Transf (AST/SGOT) 26 U/L (15-37) Alanine Aminotransferase (ALT/SGPT) 23 U/L (14-59) Alkaline Phosphatase 94 U/L (46-116) Total Protein 5.8 g/dL (6.4-8.2) Albumin 2.5 g/dL (3.4-5.0) Albumin/Globulin Ratio 0.8 (1.0-1.7) Test 05/22/17 11:07 Glucose (Fingerstick) 136 mg/dL (70-99) Objective Assessment 1. Leukocytosis, likely reactive, now resolved. 2. Diabetic ketoacidosis. 3. Severe metabolic acidosis secondary to diabetic ketoacidosis. 4. Anion gap metabolic acidosis with normal lactate. 5. High alkaline phosphatase, now resolved, secondary to nausea. 6. Nausea from diabetic ketoacidosis, resolving. 7. Abdominal pain, resolved. 8. Diarrhea, resolved. Plan Plan of Care D/c TIA Sigala MD May 22, 2017 11:17
[2017-05-22] MEDS ORDERED: INSULIN DETEMIR 300 UNITS/3 ML INSULN.PEN. SQ SCH (21:00)
== END 2017-05-22 12:30 | disposition home or self-care (01) | DRG 871 ==
LOC: ER 03:35 → 1 WEST ICU 04:52 → 5 SOUTH 20:58
PROVIDERS: ADMIT Internal Medicine; ATTEND Internal Medicine
PROC: 5A09357 Assistance with Respiratory Ventilation, Less than 24 Consecutive Hours, Continuous Positive Airway Pressure (ICD-10-PCS; principal; 2017-05-20)
DX: A41.9 Sepsis, unspecified organism (principal); E10.10 Type 1 diabetes mellitus with ketoacidosis without coma; G93.41 Metabolic encephalopathy; E87.6 Hypokalemia; I10 Essential (primary) hypertension; Z79.4 Long term (current) use of insulin; Z83.3 Family history of diabetes mellitus
CPT/HCPCS: 36415; 36600; 71010; 74176; 80048; 80053; 80307; 80329; 81001; 81025; 82805; 82962; 83605; 83690; 83735; 84100; 85025; 87086; 87641; 93005; 94640; 94660; 96365; 96375; G0480; J1170; J1650; J1815; J1885; J2405; J2543; J3475; J3480; J7030; J7042; J7050; J7620; 97530; 99285-25; G0479

== ENCOUNTER 2017-06-23 19:46 | Inpatient (IN) | payer SELFPAY ==
[2017-06-23 20:00] LABS: POC GLUCOSE 415 mg/dL (70-99)
[2017-06-23 20:06] LABS: URINE HCG POC HCG NEGATIVE (Negative)
[2017-06-23 20:07] LABS: BILIRUBIN,URINE NEGATIVE (NEG); CLARITY,URINE CLEAR; GLUCOSE,URINE >=1000 mg/dL (NEG); NITRITE,URINE NEGATIVE (NEG); PH,URINE 5.5; PROTEIN,URINE NEGATIVE (NEG-TRACE); UROBILINOGEN,URINE 0.2 mg/dL (0.2 mg/dL)
[2017-06-23 20:10] LABS: ADD MAN DIFF? NO
[2017-06-23 20:11] LABS: BASO # 0.1 x10^3/uL (0.0-0.2); BASO % 1 % (0-3); EOS % 0 % (0-3); HEMATOCRIT 48.4 % (36.0-47.0); HEMOGLOBIN 15.5 g/dL (12.0-15.5); LYMPH # 1.8 x10^3/uL (1.0-4.8); LYMPH % 14 % (24-48); MEAN CORPUSCULAR HEMOGLOBIN 29 pg (25-35); MEAN CORPUSCULAR HGB CONC 32 g/dL (31-37); MEAN CORPUSCULAR VOLUME 89 fL (79-100); MONO # 0.5 x10^3/uL (0.0-1.1); MONO % 4 % (0-9); NEUT # 10.4 x10^3uL (1.8-7.7); NEUT % 81 % (31-73); PLATELET COUNT 355 x10^3/uL (140-400); RED BLOOD COUNT 5.41 x10^6/uL (3.50-5.40); RED CELL DISTRIBUTION WIDTH 14.7 % (11.5-14.5); WHITE BLOOD COUNT 12.8 x10^3/uL (4.0-11.0)
[2017-06-23 20:15] LABS: BACTERIA,URINE MODERATE /HPF (0-FEW); COLOR,URINE STRAW; RBC,URINE RARE /HPF (0-2); SQUAMOUS EPITHELIAL CELL,UR MANY /LPF; WBC,URINE OCC /HPF (0-4)
[2017-06-23] MEDS: IV NORMAL SALINE 1000ML BAG 1,000 ML IV ×3 (20:16→23:45)
[2017-06-23 20:25] LABS: ANION GAP 26 (6-14); BLOOD UREA NITROGEN 18 mg/dL (7-20); BUN/CREATININE RATIO 16 (6-20); CALCIUM 9.3 mg/dL (8.5-10.1); CARBON DIOXIDE 12 mmol/L (21-32); CHLORIDE 94 mmol/L (98-107); CREATININE 1.1 mg/dL (0.6-1.0); GFR 63.3; GLUCOSE 420 mg/dL (70-99); NEG OBC SER NEG; POS OBC SER POS; POTASSIUM 5.1 mmol/L (3.5-5.1); PREG TEST PT QUAL NEGATIVE (NEG); SODIUM 132 mmol/L (136-145)
[2017-06-23 20:30] LABS: ALBUMIN 4.6 g/dL (3.4-5.0); ALBUMIN/GLOBULIN RATIO 0.9 (1.0-1.7); ALK PHOS 156 U/L (46-116); ALT (SGPT) 55 U/L (14-59); AST (SGOT) 21 U/L (15-37); TOTAL BILIRUBIN 0.5 mg/dL (0.2-1.0); TOTAL PROTEIN 9.5 g/dL (6.4-8.2)
[2017-06-23 20:32] LABS: ACETONE LG POS (NEG)
[2017-06-23] MEDS: INSULIN REGULAR 100 UNIT/ML 10ML VIAL. SQ (20:55)
[2017-06-23] MEDS: FAMOTIDINE 20 MG/2 ML VIAL IVP (21:21)
[2017-06-23] MEDS: ONDANSETRON PF 4 MG/2 ML VIAL. IV (21:22)
[2017-06-23 22:05] LABS: POC GLUCOSE 328 mg/dL (70-99)
[2017-06-23] MEDS: INSULIN REGULAR VIAL 150 UNIT in 0.9 % SODIUM CHLORIDE 150ML 150 ML IV (22:19)
[2017-06-23] MEDS ORDERED: ONDANSETRON PF 4 MG/2 ML VIAL. IV (22:45)
[2017-06-23] MEDS ORDERED: INSULIN REGULAR VIAL 150 UNIT in 0.9 % SODIUM CHLORIDE 150ML 150 ML IV (22:45)
[2017-06-23] MEDS ORDERED: IV DEXTROSE 5 %-0.45 % NACL 1,000 ML IV (22:45)
[2017-06-23 23:19] LABS: POC GLUCOSE 252 mg/dL (70-99)
[2017-06-24] MEDS ORDERED: oxyCODONE/APAP 5/325 1 TAB TABLET PO (00:30)
[2017-06-24 02:04] LABS: ANION GAP 23 (6-14); BLOOD UREA NITROGEN 14 mg/dL (7-20); CALCIUM 7.4 mg/dL (8.5-10.1); CHLORIDE 105 mmol/L (98-107); CREATININE 0.8 mg/dL (0.6-1.0); GFR 91.4; GLUCOSE 182 mg/dL (70-99); POTASSIUM 4.1 mmol/L (3.5-5.1); SODIUM 137 mmol/L (136-145)
[2017-06-24 02:07] LABS: MAGNESIUM 1.6 mg/dL (1.8-2.4)
[2017-06-24] MEDS: ACETAMINOPHEN 325 MG TABLET. PO (02:10)
[2017-06-24 02:13] LABS: CARBON DIOXIDE 9 mmol/L (21-32)
[2017-06-24 02:22] LABS: BASE EXCESS ABG -20 mmol/L (-3-3); HCO3 ABG 7 mmol/L (21-28); PCO2 ABG 20 mmHg (35-46); PH ABG 7.15 (7.35-7.45); PO2 ABG 114 mmHg (85-108)
[2017-06-24] MEDS ORDERED: POTASSIUM CL IV (02:45)
[2017-06-24] MEDS ORDERED: [UNRECOGNIZED DRUG - OTHER] IV (02:45)
[2017-06-24] MEDS: IV DEXTROSE 5% - 0.9 % NACL 1,000 ML IV ×2 (02:58→06:00)
[2017-06-24] MEDS: MAGNESIUM SULFATE 4GM 100 ML IV (02:59)
[2017-06-24] MEDS: POTASSIUM CHLORIDE IV (03:11)
[2017-06-24] MEDS: NORMAL SALINE IV (03:11)
[2017-06-24 05:56] LABS: POC GLUCOSE 96 mg/dL (70-99)
[2017-06-24 05:56] LABS: POC GLUCOSE 163 mg/dL (70-99)
[2017-06-24 05:56] LABS: POC GLUCOSE 143 mg/dL (70-99)
[2017-06-24 05:56] LABS: POC GLUCOSE 139 mg/dL (70-99)
[2017-06-24 06:36] LABS: ADD MAN DIFF? NO
[2017-06-24 06:48] LABS: BASO # 0.1 x10^3/uL (0.0-0.2); BASO % 1 % (0-3); EOS # 0.1 x10^3/uL (0.0-0.7); EOS % 1 % (0-3); HEMATOCRIT 37.1 % (36.0-47.0); LYMPH # 3.1 x10^3/uL (1.0-4.8); LYMPH % 28 % (24-48); MEAN CORPUSCULAR HEMOGLOBIN 28 pg (25-35); MEAN CORPUSCULAR HGB CONC 33 g/dL (31-37); MEAN CORPUSCULAR VOLUME 87 fL (79-100); MONO # 1.1 x10^3/uL (0.0-1.1); MONO % 10 % (0-9); NEUT # 6.6 x10^3uL (1.8-7.7); NEUT % 60 % (31-73); PLATELET COUNT 284 x10^3/uL (140-400); RED BLOOD COUNT 4.25 x10^6/uL (3.50-5.40); RED CELL DISTRIBUTION WIDTH 14.3 % (11.5-14.5)
[2017-06-24 06:58] LABS: ANION GAP 12 (6-14); BLOOD UREA NITROGEN 9 mg/dL (7-20); CALCIUM 6.9 mg/dL (8.5-10.1); CARBON DIOXIDE 17 mmol/L (21-32); CHLORIDE 107 mmol/L (98-107); CREATININE 0.8 mg/dL (0.6-1.0); GFR 91.4; GLUCOSE 185 mg/dL (70-99); MAGNESIUM 2.4 mg/dL (1.8-2.4); POTASSIUM 3.9 mmol/L (3.5-5.1); SODIUM 136 mmol/L (136-145)
[2017-06-24] MEDS: POTASSIUM CHLORIDE 40 MEQ in IV DEXTROSE 5% - 0.9 % NACL 1,000 ML IV (08:00)
[2017-06-24 08:10] LABS: POC GLUCOSE 169 mg/dL (70-99)
[2017-06-24 08:11] LABS: POC GLUCOSE 149 mg/dL (70-99)
[2017-06-24 08:11] LABS: POC GLUCOSE 183 mg/dL (70-99)
[2017-06-24 08:11] LABS: POC GLUCOSE 159 mg/dL (70-99)
[2017-06-24 09:09] LABS: POC GLUCOSE 176 mg/dL (70-99)
[2017-06-24] MEDS ORDERED: DEXTROSE 50% 25 GM / 50ML DISP.SYRIN. IV (10:00)
[2017-06-24 10:20] LABS: POC GLUCOSE 113 mg/dL (70-99)
[2017-06-24] MEDS: INSULIN DETEMIR 300 UNITS/3 ML INSULN.PEN. SQ ×2 (10:30→18:30)
[2017-06-24 12:39] LABS: POC GLUCOSE 216 mg/dL (70-99)
[2017-06-24] MEDS: INSULIN ASPART 300 UNITS/3 ML INSULN.PEN SQ ×4 (12:42→21:26)
[2017-06-24 17:11] LABS: MRSA BY PCR Negative (Negative)
[2017-06-24 17:59] LABS: POC GLUCOSE 407 mg/dL (70-99)
[2017-06-24 20:57] LABS: ANION GAP 14 (6-14); BLOOD UREA NITROGEN 14 mg/dL (7-20); CARBON DIOXIDE 19 mmol/L (21-32); CHLORIDE 100 mmol/L (98-107); GFR 70.7; GLUCOSE 395 mg/dL (70-99); POTASSIUM 3.6 mmol/L (3.5-5.1); SODIUM 133 mmol/L (136-145)
[2017-06-24] MEDS: SODIUM BICARBONATE VIAL 100 MEQ in IV DEXTROSE 5% 1,000 ML IV (21:46)
[2017-06-24 23:08] LABS: HEMOGLOBIN A1C 11.5 % (4.8-5.6)
[2017-06-25] MEDS: SODIUM BICARBONATE VIAL 100 MEQ in IV DEXTROSE 5% 1,000 ML IV ×2 (05:50→15:06)
[2017-06-25 07:56] LABS: ANION GAP 6 (6-14); BLOOD UREA NITROGEN 8 mg/dL (7-20); CALCIUM 8.2 mg/dL (8.5-10.1); CARBON DIOXIDE 29 mmol/L (21-32); CHLORIDE 100 mmol/L (98-107); CREATININE 0.6 mg/dL (0.6-1.0); GFR 127.5; GLUCOSE 303 mg/dL (70-99); POTASSIUM 3.3 mmol/L (3.5-5.1); SODIUM 135 mmol/L (136-145)
[2017-06-25] MEDS: INSULIN ASPART 300 UNITS/3 ML INSULN.PEN SQ ×2 (09:27→12:37)
[2017-06-25] MEDS: INSULIN DETEMIR 300 UNITS/3 ML INSULN.PEN. SQ (09:28)
[2017-06-25 11:20] LABS: POC GLUCOSE 265 mg/dL (70-99)
[2017-06-25 11:26] LABS: POC GLUCOSE 350 mg/dL (70-99)
[2017-06-25] MEDS ORDERED: DEXTROSE 50% 25 GM / 50ML DISP.SYRIN. IV (12:00)
[2017-06-25] MEDS: POTASSIUM CHLORIDE 20 MEQ TABLET.ER. PO (12:31)
[2017-06-25] MEDS ORDERED: INSULIN ASPART 300 UNITS/3 ML INSULN.PEN SQ (16:30)
[2017-06-26] MEDS ORDERED: POTASSIUM CHLORIDE 20 MEQ TABLET.ER. PO (08:00)
== END 2017-06-25 16:00 | disposition home or self-care (01) | DRG 391 ==
LOC: 5 SOUTH 06-24 22:15 → ER 19:46 → 1 WEST ICU 22:11
PROVIDERS: Internal Medicine
DX: A08.4 Viral intestinal infection, unspecified (principal); E10.10 Type 1 diabetes mellitus with ketoacidosis without coma; E87.6 Hypokalemia; E86.0 Dehydration; Z96.41 Presence of insulin pump (external) (internal); Z83.3 Family history of diabetes mellitus
CPT/HCPCS: 36415; 36600; 80048; 80053; 81001; 81025; 82010; 82805; 82962; 83036; 83735; 84100; 84703; 85025; 87086; 87641; 96361; 96374; 96375; 99285-25; J1815; J2405; J3475; J7030; J7042; S0028

== ENCOUNTER 2017-06-28 11:33 | Inpatient (IN) | payer SELFPAY ==
[2017-06-28] MEDS ORDERED: 0.9 % SODIUM CHLORIDE 10 ML DISP.SYRIN. IV (11:45)
[2017-06-28 12:12] LABS: ADD MAN DIFF? NO
[2017-06-28] MEDS: ONDANSETRON PF 4 MG/2 ML VIAL. IV ×2 (12:12→20:51)
[2017-06-28 12:13] LABS: BILIRUBIN,URINE NEGATIVE (NEG); CLARITY,URINE CLEAR; COLOR,URINE YELLOW; GLUCOSE,URINE >=1000 mg/dL (NEG); NITRITE,URINE NEGATIVE (NEG); PH,URINE 5.5; PROTEIN,URINE 30 mg/dL (NEG-TRACE); UROBILINOGEN,URINE 0.2 mg/dL (0.2 mg/dL)
[2017-06-28] MEDS: IV NORMAL SALINE 1000ML BAG 1,000 ML IV ×3 (12:14→13:18)
[2017-06-28 12:21] LABS: BACTERIA,URINE 0 /HPF (0-FEW); RBC,URINE 0 /HPF (0-2); SQUAMOUS EPITHELIAL CELL,UR FEW /LPF; WBC,URINE 0 /HPF (0-4)
[2017-06-28 12:27] LABS: BASO # 0.2 x10^3/uL (0.0-0.2); BASO % 2 % (0-3); EOS % 1 % (0-3); HEMATOCRIT 48.7 % (36.0-47.0); HEMOGLOBIN 15.9 g/dL (12.0-15.5); LYMPH # 1.4 x10^3/uL (1.0-4.8); LYMPH % 17 % (24-48); MEAN CORPUSCULAR HEMOGLOBIN 29 pg (25-35); MEAN CORPUSCULAR HGB CONC 33 g/dL (31-37); MEAN CORPUSCULAR VOLUME 88 fL (79-100); MONO # 0.4 x10^3/uL (0.0-1.1); MONO % 5 % (0-9); NEUT # 6.3 x10^3uL (1.8-7.7); NEUT % 76 % (31-73); PLATELET COUNT 381 x10^3/uL (140-400); RED BLOOD COUNT 5.54 x10^6/uL (3.50-5.40); RED CELL DISTRIBUTION WIDTH 14.4 % (11.5-14.5); WHITE BLOOD COUNT 8.3 x10^3/uL (4.0-11.0)
[2017-06-28 12:27] LABS: ACETONE MOD POS (NEG)
[2017-06-28 12:31] LABS: NEG OBC UR NEG; U PREG PATIENT NEGATIVE (NEG)
[2017-06-28 12:32] LABS: POS OBC UR POS
[2017-06-28] MEDS: HYDROmorphone 2 MG/ML VIAL IV/SQ ×3 (12:35→23:37)
[2017-06-28 12:36] LABS: ALBUMIN 4.7 g/dL (3.4-5.0); ALK PHOS 167 U/L (46-116); ALT (SGPT) 34 U/L (14-59); ANION GAP 29 (6-14); AST (SGOT) 17 U/L (15-37); BLOOD UREA NITROGEN 14 mg/dL (7-20); CALCIUM 9.5 mg/dL (8.5-10.1); CHLORIDE 96 mmol/L (98-107); CREATININE 1.1 mg/dL (0.6-1.0); DIRECT BILIRUBIN 0.1 mg/dL (0.0-0.2); GFR 63.3; GLUCOSE 440 mg/dL (70-99); LIPASE 66 U/L (73-393); MAGNESIUM 1.9 mg/dL (1.8-2.4); POTASSIUM 5.1 mmol/L (3.5-5.1); SODIUM 134 mmol/L (136-145); TOTAL BILIRUBIN 0.6 mg/dL (0.2-1.0); TOTAL PROTEIN 9.3 g/dL (6.4-8.2)
[2017-06-28 12:39] LABS: CARBON DIOXIDE 9 mmol/L (21-32)
[2017-06-28 12:58] LABS: BASE EXCESS ABG -21 mmol/L (-3-3); HCO3 ABG 7 mmol/L (21-28); PCO2 ABG 24 mmHg (35-46); PO2 ABG 110 mmHg (85-108); SAT O2 ABG 97 % (92-99)
[2017-06-28 12:59] LABS: FIO2 ABG 21
[2017-06-28] MEDS ORDERED: ACETAMINOPHEN 325 MG TABLET. PO ×2 (13:15→18:45)
[2017-06-28] MEDS ORDERED: DEXTROSE 50% 25 GM / 50ML DISP.SYRIN. IV (13:15)
[2017-06-28] MEDS ORDERED: MORPHINE SULFATE 4 MG/ML DISP.SYRIN. IV (13:15)
[2017-06-28] MEDS ORDERED: ONDANSETRON PF 4 MG/2 ML VIAL. IV (13:15)
[2017-06-28] MEDS: INSULIN,REGULAR 150 UNIT DRIP 150 ML IV (13:25)
[2017-06-28 14:26] LABS: POC GLUCOSE 420 mg/dL (70-99)
[2017-06-28 14:26] LABS: POC GLUCOSE 382 mg/dL (70-99)
[2017-06-28 14:26] LABS: POC GLUCOSE 279 mg/dL (70-99)
[2017-06-28 15:41] LABS: POC GLUCOSE 195 mg/dL (70-99)
[2017-06-28] MEDS: IV DEXTROSE 5 %-0.45 % NACL 1,000 ML IV ×3 (15:45→23:45)
[2017-06-28] MEDS: IV DEXTROSE 5% - 0.9 % NACL 1,000 ML IV ×3 (15:51→23:45)
[2017-06-28 16:31] LABS: ANION GAP 23 (6-14); BLOOD UREA NITROGEN 11 mg/dL (7-20); CALCIUM 7.6 mg/dL (8.5-10.1); CHLORIDE 104 mmol/L (98-107); GFR 70.7; GLUCOSE 210 mg/dL (70-99); MAGNESIUM 1.6 mg/dL (1.8-2.4); PHOSPHORUS 3.1 mg/dL (2.6-4.7); POTASSIUM 4.2 mmol/L (3.5-5.1); SODIUM 138 mmol/L (136-145)
[2017-06-28 16:35] LABS: CARBON DIOXIDE 11 mmol/L (21-32)
[2017-06-28 16:53] LABS: POC GLUCOSE 221 mg/dL (70-99)
[2017-06-28] MEDS: INSULIN ASPART 300 UNITS/3 ML INSULN.PEN SQ (17:00)
[2017-06-28] MEDS: POTASSIUM CHLORIDE 40 MEQ in IV DEXTROSE 5% - 0.9 % NACL 1,000 ML IV (17:04)
[2017-06-28] MEDS: SODIUM BICARB ADULT 8.4% 50 MEQ/50 ML DISP.SYRIN. IV (17:04)
[2017-06-28] MEDS: MAGNESIUM SULFATE 4GM 100 ML IV (17:42)
[2017-06-28 18:01] LABS: POC GLUCOSE 180 mg/dL (70-99)
[2017-06-28] MEDS ORDERED: traMADol 50 MG TABLET PO (18:45)
[2017-06-28] MEDS ORDERED: hydrALAZINE 20 MG/ML VIAL. IVP (18:45)
[2017-06-28 19:23] LABS: POC GLUCOSE 115 mg/dL (70-99)
[2017-06-28] MEDS: ENOXAPARIN 40 MG/0.4 ML SYRINGE. SQ (20:23)
[2017-06-28] MEDS: DEXTROSE 5% IV ×2 (20:24→21:59)
[2017-06-28] MEDS: CALCIUM CHLORIDE IV (20:24)
[2017-06-28 20:35] LABS: POC GLUCOSE 92 mg/dL (70-99)
[2017-06-28 21:25] LABS: POC GLUCOSE 79 mg/dL (70-99)
[2017-06-28 21:30] LABS: ANION GAP 16 (6-14); BLOOD UREA NITROGEN 10 mg/dL (7-20); CALCIUM 9.4 mg/dL (8.5-10.1); CARBON DIOXIDE 17 mmol/L (21-32); CHLORIDE 111 mmol/L (98-107); CREATININE 0.9 mg/dL (0.6-1.0); GFR 79.8; GLUCOSE 99 mg/dL (70-99); MAGNESIUM 2.7 mg/dL (1.8-2.4); PHOSPHORUS 2.4 mg/dL (2.6-4.7); POTASSIUM 3.4 mmol/L (3.5-5.1); SODIUM 144 mmol/L (136-145)
[2017-06-28] MEDS: POTASSIUM CL 40MEQ D5-0.45NACL 1,000 ML IV (21:58)
[2017-06-28] MEDS: SODIUM PHOSPHATE IV (21:59)
[2017-06-28] MEDS ORDERED: SODIUM PHOSPHATE 20 MMOL in IV DEXTROSE 5% 250 ML IV (22:00)
[2017-06-28 22:29] LABS: POC GLUCOSE 168 mg/dL (70-99)
[2017-06-28 23:44] LABS: POC GLUCOSE 203 mg/dL (70-99)
[2017-06-29 00:46] LABS: POC GLUCOSE 204 mg/dL (70-99)
[2017-06-29 01:42] LABS: POC GLUCOSE 190 mg/dL (70-99)
[2017-06-29 02:00] LABS: ANION GAP 14 (6-14); BLOOD UREA NITROGEN 6 mg/dL (7-20); CALCIUM 8.5 mg/dL (8.5-10.1); CARBON DIOXIDE 17 mmol/L (21-32); CHLORIDE 105 mmol/L (98-107); CREATININE 0.9 mg/dL (0.6-1.0); GFR 79.8; GLUCOSE 224 mg/dL (70-99); MAGNESIUM 1.6 mg/dL (1.8-2.4); PHOSPHORUS 3.1 mg/dL (2.6-4.7); POTASSIUM 3.8 mmol/L (3.5-5.1); SODIUM 136 mmol/L (136-145)
[2017-06-29 02:16] LABS: MRSA BY PCR Negative (Negative)
[2017-06-29 02:22] LABS: POC GLUCOSE 175 mg/dL (70-99)
[2017-06-29] MEDS: POTASSIUM CL IV (03:11)
[2017-06-29] MEDS: D5 IV (03:11)
[2017-06-29] MEDS: [UNRECOGNIZED DRUG - OTHER] IV (03:11)
[2017-06-29] MEDS: SODIUM CHLORIDE IV (03:11)
[2017-06-29] MEDS ORDERED: POTASSIUM CHLORIDE 40 MEQ in IV DEXTROSE 5% - 0.9 % NACL 1,000 ML IV (03:30)
[2017-06-29] MEDS: IV DEXTROSE 5 %-0.45 % NACL 1,000 ML IV ×2 (03:45→07:45)
[2017-06-29] MEDS: IV DEXTROSE 5% - 0.9 % NACL 1,000 ML IV ×2 (03:45→07:45)
[2017-06-29 03:48] LABS: POC GLUCOSE 149 mg/dL (70-99)
[2017-06-29] MEDS: MORPHINE SULFATE 2 MG/ML DISP.SYRIN. IV ×2 (04:31→07:29)
[2017-06-29 05:04] LABS: POC GLUCOSE 163 mg/dL (70-99)
[2017-06-29 06:16] LABS: ADD MAN DIFF? NO
[2017-06-29 06:20] LABS: POC GLUCOSE 131 mg/dL (70-99)
[2017-06-29 06:21] LABS: BASO # 0.1 x10^3/uL (0.0-0.2); BASO % 1 % (0-3); EOS # 0.1 x10^3/uL (0.0-0.7); EOS % 1 % (0-3); LYMPH # 2.6 x10^3/uL (1.0-4.8); LYMPH % 34 % (24-48); MEAN CORPUSCULAR HEMOGLOBIN 29 pg (25-35); MEAN CORPUSCULAR HGB CONC 33 g/dL (31-37); MEAN CORPUSCULAR VOLUME 86 fL (79-100); MONO # 0.7 x10^3/uL (0.0-1.1); MONO % 9 % (0-9); NEUT # 4.2 x10^3uL (1.8-7.7); NEUT % 55 % (31-73); PLATELET COUNT 284 x10^3/uL (140-400); RED BLOOD COUNT 4.19 x10^6/uL (3.50-5.40); WHITE BLOOD COUNT 7.7 x10^3/uL (4.0-11.0)
[2017-06-29 06:32] LABS: MAGNESIUM 1.5 mg/dL (1.8-2.4)
[2017-06-29 06:37] LABS: ANION GAP 6 (6-14); BLOOD UREA NITROGEN 5 mg/dL (7-20); CALCIUM 8.1 mg/dL (8.5-10.1); CARBON DIOXIDE 24 mmol/L (21-32); CHLORIDE 107 mmol/L (98-107); CREATININE 0.8 mg/dL (0.6-1.0); GFR 91.4; GLUCOSE 144 mg/dL (70-99); POTASSIUM 3.9 mmol/L (3.5-5.1); SODIUM 137 mmol/L (136-145)
[2017-06-29] MEDS: INSULIN ASPART 300 UNITS/3 ML INSULN.PEN SQ ×5 (08:00→17:41)
[2017-06-29] MEDS: POTASSIUM CHLORIDE 40 MEQ in IV DEXTROSE 5% - 0.9 % NACL 1,000 ML IV (08:13)
[2017-06-29] MEDS: POTASSIUM PHOSPHATE DIBASIC 10 MMOL in IV DEXTROSE 5% 100 ML IV ×2 (08:13→10:00)
[2017-06-29] MEDS: MAGNESIUM SULFATE 4GM 100 ML IV (08:14)
[2017-06-29] MEDS: INSULIN DETEMIR 300 UNITS/3 ML INSULN.PEN. SQ ×2 (09:30→21:03)
[2017-06-29 12:37] LABS: POC GLUCOSE 208 mg/dL (70-99)
[2017-06-29 12:41] LABS: POC GLUCOSE 114 mg/dL (70-99)
[2017-06-29 16:35] LABS: POC GLUCOSE 222 mg/dL (70-99)
[2017-06-29 20:54] LABS: POC GLUCOSE 221 mg/dL (70-99)
[2017-06-29] MEDS: ENOXAPARIN 40 MG/0.4 ML SYRINGE. SQ (20:55)
[2017-06-29] MEDS: DOCUSATE SODIUM 100 MG CAPSULE. PO (23:16)
[2017-06-30 04:23] LABS: ADD MAN DIFF? NO
[2017-06-30 04:54] LABS: BASO # 0.1 x10^3/uL (0.0-0.2); BASO % 1 % (0-3); EOS # 0.2 x10^3/uL (0.0-0.7); EOS % 3 % (0-3); HEMATOCRIT 35.1 % (36.0-47.0); HEMOGLOBIN 11.8 g/dL (12.0-15.5); LYMPH # 3.3 x10^3/uL (1.0-4.8); LYMPH % 52 % (24-48); MEAN CORPUSCULAR HEMOGLOBIN 29 pg (25-35); MEAN CORPUSCULAR HGB CONC 34 g/dL (31-37); MEAN CORPUSCULAR VOLUME 86 fL (79-100); MONO # 0.4 x10^3/uL (0.0-1.1); MONO % 7 % (0-9); NEUT # 2.4 x10^3uL (1.8-7.7); NEUT % 37 % (31-73); PLATELET COUNT 262 x10^3/uL (140-400); RED BLOOD COUNT 4.09 x10^6/uL (3.50-5.40); RED CELL DISTRIBUTION WIDTH 14.2 % (11.5-14.5); WHITE BLOOD COUNT 6.4 x10^3/uL (4.0-11.0)
[2017-06-30 05:08] LABS: ANION GAP 10 (6-14); BLOOD UREA NITROGEN 7 mg/dL (7-20); CALCIUM 8.4 mg/dL (8.5-10.1); CARBON DIOXIDE 26 mmol/L (21-32); CHLORIDE 105 mmol/L (98-107); CREATININE 0.6 mg/dL (0.6-1.0); GFR 127.5; GLUCOSE 171 mg/dL (70-99); MAGNESIUM 1.6 mg/dL (1.8-2.4); PHOSPHORUS 2.9 mg/dL (2.6-4.7); POTASSIUM 3.1 mmol/L (3.5-5.1); SODIUM 141 mmol/L (136-145)
[2017-06-30] MEDS: INSULIN ASPART 300 UNITS/3 ML INSULN.PEN SQ ×7 (08:00→17:36)
[2017-06-30 08:27] LABS: POC GLUCOSE 105 mg/dL (70-99)
[2017-06-30] MEDS: MAGNESIUM SULFATE 4GM 100 ML IV (10:54)
[2017-06-30 11:28] LABS: POC GLUCOSE 129 mg/dL (70-99)
[2017-06-30 17:09] LABS: POC GLUCOSE 372 mg/dL (70-99)
[2017-06-30 20:25] LABS: POC GLUCOSE 231 mg/dL (70-99)
[2017-06-30] MEDS: INSULIN DETEMIR 300 UNITS/3 ML INSULN.PEN. SQ (20:43)
[2017-06-30] MEDS: ENOXAPARIN 40 MG/0.4 ML SYRINGE. SQ (20:45)
[2017-06-30] MEDS ORDERED: INSULIN DETEMIR 300 UNITS/3 ML INSULN.PEN. SQ (21:00)
[2017-07-01 08:11] LABS: POC GLUCOSE 331 mg/dL (70-99)
[2017-07-01] MEDS: INSULIN ASPART 300 UNITS/3 ML INSULN.PEN SQ ×4 (08:51→14:03)
[2017-07-01 11:39] LABS: POC GLUCOSE 152 mg/dL (70-99)
== END 2017-07-01 14:20 | disposition home or self-care (01) | DRG 640 ==
LOC: 6 SOUTH 06-29 13:40 → ER 11:33 → 1 WEST ICU 13:06
DX: E83.51 Hypocalcemia (principal); E10.10 Type 1 diabetes mellitus with ketoacidosis without coma; N39.0 Urinary tract infection, site not specified; E83.39 Other disorders of phosphorus metabolism; E83.42 Hypomagnesemia; Z96.41 Presence of insulin pump (external) (internal); E86.0 Dehydration; Z79.4 Long term (current) use of insulin
CPT/HCPCS: 36415; 36600; 80048; 80076; 81001; 81025; 82010; 82805; 82962; 83690; 83735; 84100; 85025; 87641; 93005; 96361; 96374; 99285; 99285-25; J1170; J1650; J1815; J2270; J2405; J3475; J3480; J7030; J7042